=== PATIENT | female | born 1980 | race Caucasian/White ===

== ENCOUNTER 2017-12-30 05:30 | Inpatient (IN) | payer MEDICAID ==
[~2017-12-30 05:30] MED LIST: Acetaminophen 500 MG Tab PO ONE; Celecoxib 200 MG Cap PO ONE; Dextrose 5%-Lactated Ringers 1,000 ML IV SCH; Gabapentin 300 MG Cap PO ONE; Scopolamine 1.5 MG Transdermal Patch TOP ONE; cefOXitin 2 GM in Sodium Chloride 0.9% 50 ML IV ONE
[2017-12-30] MEDS ORDERED: Dexamethasone 4 MG/ML SDV ONE (06:36)
[2017-12-30] MEDS ORDERED: Rocuronium 50 MG/5 ML Vial ONE (06:36)
[2017-12-30] MEDS ORDERED: Neostigmine Methylsulfate 1 MG/ML 5 ML Syringe ONE (06:36)
[2017-12-30] MEDS ORDERED: Propofol 200 MG/20 ML SDV ONE (06:36)
[2017-12-30] MEDS ORDERED: Succinylcholine 200 MG/10 ML MDV ONE (06:36)
[2017-12-30] MEDS ORDERED: Glycopyrrolate 0.2 MG/ML 5 ML MDV ONE (06:36)
[2017-12-30] MEDS ORDERED: Ondansetron 4 MG/2 ML SDV ONE (06:36)
[2017-12-30] MEDS ORDERED: fentaNYL 250 MCG/5 ML SDV ONE ×2 (06:37→06:38)
[2017-12-30] MEDS ORDERED: cefOXitin 2 GM Vial ONE (06:57)
[2017-12-30] MEDS ORDERED: Ketamine 500 MG/5 ML MDV IV SCH (07:45)
[2017-12-30] MEDS ORDERED: Lidocaine 2% 100 MG/5 ML Syringe IVPUSH ONE (07:45)
[2017-12-30] MEDS ORDERED: Ropivacaine 60 ML, Dexamethasone 8 MG, EPINEPHrine 0.4 MG, Sodium Chloride 0.9% 17.6 ML NERVRT SCH ×4 (07:45)
[2017-12-30] MEDS ORDERED: Lidocaine 0.4%/D5W 2 GM/500 ML BAG IV SCH ×2 (07:45→11:15)
[2017-12-30] MEDS ORDERED: Labetalol 20 MG/4 ML Syringe ONE (08:00)
[2017-12-30] MEDS ORDERED: hydrOXYzine HCl 100 MG/2 ML SDV IM ONE (10:13)
[2017-12-30] MEDS ORDERED: fentaNYL 100 MCG/2 ML SDV IVPUSH ONE (10:20)
[2017-12-30] MEDS: Dextrose 5%-Lactated Ringers 1,000 ML IV SCH ×2 (11:29→22:31)
[2017-12-30] MEDS ORDERED: diphenhydrAMINE 50 MG/ML SDV IVPUSH PRN (12:00)
[2017-12-30] MEDS ORDERED: Labetalol 20 MG/4 ML Syringe IVPUSH PRN (12:00)
[2017-12-30] MEDS ORDERED: Metoclopramide 10 MG/2 ML SDV IVPUSH PRN (12:00)
[2017-12-30] MEDS: Pantoprazole 40 MG Vial IVPUSH SCH (13:46)
[2017-12-30] MEDS: Gabapentin 250 MG/5 ML Solution ML 470 ML Bottle PO SCH ×2 (13:46→20:44)
[2017-12-30] MEDS: Acetaminophen Soln 650 MG/20.3 ML UD Cup PO SCH ×2 (13:46→20:45)
[2017-12-30] MEDS: Ondansetron 4 MG/2 ML SDV IVPUSH PRN ×2 (13:57→21:06)
[2017-12-30] MEDS: cefOXitin 2 GM in Sodium Chloride 0.9% 50 ML IV SCH ×2 (13:59→20:44)
[2017-12-30] MEDS: Heparin Sodium 5,000 Units/ML Vial SUBCUT SCH (15:19)
[2017-12-30] MEDS ORDERED: MVI, Adult with Vitamin K 10 ML, Thiamine 200 MG, Chromium/Copper/Mang/Selen/Zn 1 ML in... IV SCH ×4 (16:00)
[2017-12-30] MEDS: hydrOXYzine HCl 100 MG/2 ML SDV IM PRN (21:06)
[2017-12-31] MEDS ORDERED: Iohexol 647 MG/ML 50 ML SDV PO STA (01:46)
[2017-12-31] MEDS: Acetaminophen Soln 650 MG/20.3 ML UD Cup PO SCH ×5 (03:17→20:45)
[2017-12-31] MEDS: Heparin Sodium 5,000 Units/ML Vial SUBCUT SCH ×2 (03:18→17:24)
[2017-12-31] MEDS: cefOXitin 2 GM in Sodium Chloride 0.9% 50 ML IV SCH (03:20)
[2017-12-31] MEDS: Ondansetron 4 MG/2 ML SDV IVPUSH PRN ×3 (03:24→15:56)
[2017-12-31] MEDS: Dextrose 5%-Lactated Ringers 1,000 ML IV SCH ×3 (04:52→22:01)
[2017-12-31] MEDS ORDERED: Ondansetron 4 MG Tab.DIS PO PRN (07:13)
[2017-12-31] MEDS: Metoclopramide 10 MG/2 ML SDV IVPUSH SCH ×3 (07:50→21:58)
[2017-12-31] MEDS: Levothyroxine 50 MCG Tab PO SCH (07:50)
[2017-12-31] MEDS ORDERED: Celecoxib 200 MG Cap PO SCH (08:00)
--- NOTE | 2017-12-31 08:44 | CR ---
UGI wo KUB HISTORY: eval R -Y GBP FINDINGS: After administration of oral contrast, upright views were obtained. Post operative changes gastric bypass. Surgical drains in place. No evidence for leak. Contrast passes freely into proximal small bowel loops which are mildly dilated. IMPRESSION: Postop ileus No evidence for leak or obstruction.
--- NOTE | 2017-12-31 08:50 | PN ---
DATE OF SERVICE: 12/31/2017 SUBJECTIVE: Marge is postoperative day 1. She states her pain is controlled. She has had nausea and vomiting. After taking her medication, upper GI was normal. Temp max 100.7. REVIEW OF SYSTEMS: Remainder of review of systems negative for any pertinent positives and negatives. OBJECTIVE: GENERAL: Marge Patterson is a pleasant 37-year-old female. She is alert and orientated, resting in bed. VITAL SIGNS: TPR 97.6, 76, 18, blood pressure 159/82. HEENT: Negative. NECK: Supple. HEART: Regular rate and rhythm. LUNGS: Clear. ABDOMEN: Dressings dry and intact. Abdominal binder is on. YIN drain is intact and has put out 115 mL of a light red drainage. Oral intake was 150. Urine output was 3750. EXTREMITIES: Without peripheral edema. ASSESSMENT: Laparoscopic Hayden-en-Y gastric bypass surgery, liver biopsy for morbid obesity and hepatomegaly. PLAN: 1. Reglan 10 mg IV q.6 hours scheduled. 2. Decrease IV to 100 mL per hour. 3. Dressing off, may shower. 4. Step 2 gastric bypass diet without cereal. 5. Zofran ODT 4 mg p.o. q.4 hours p.r.n. nausea. 6. Communication orders, 3 med cups every 20 minutes or equal to 3 per hour, record at bedside. 7. We will evaluate p.r.n. or in a.m. Patsy Fernandez PA-C /[id number]
[2017-12-31] MEDS: Gabapentin 250 MG/5 ML Solution ML 470 ML Bottle PO SCH ×2 (09:35→15:09)
[2017-12-31] MEDS: SCOPOLAMINE PATCH CHECK TOP SCH (09:36)
[2017-12-31] MEDS: FLUoxetine 20 MG Cap PO SCH (09:36)
[2017-12-31] MEDS: hydrOXYzine HCl 100 MG/2 ML SDV IM PRN (11:09)
[2017-12-31] MEDS ORDERED: HYDROmorphone/Normal Saline 15 MG/30 ML PCA IV PRN (15:09)
[2017-12-31] MEDS ORDERED: Naloxone 0.4 MG/ML SDV IV PRN (15:09)
[2017-12-31] MEDS ORDERED: Metoclopramide 10 MG/2 ML SDV IVPUSH PRN (15:12)
[2017-12-31] MEDS ORDERED: MVI, Adult with Vitamin K 10 ML, Thiamine 200 MG, Chromium/Copper/Mang/Selen/Zn 1 ML in... IV SCH ×4 (16:00)
[2017-12-31] MEDS: Pantoprazole 40 MG Vial IVPUSH SCH (16:02)
[2018-01-01] MEDS: Acetaminophen Soln 650 MG/20.3 ML UD Cup PO SCH ×4 (01:55→21:12)
[2018-01-01] MEDS: Heparin Sodium 5,000 Units/ML Vial SUBCUT SCH ×2 (03:28→16:10)
[2018-01-01] MEDS: Metoclopramide 10 MG/2 ML SDV IVPUSH SCH ×3 (03:28→17:38)
[2018-01-01] MEDS: Dextrose 5%-Lactated Ringers 1,000 ML IV SCH (07:52)
[2018-01-01] MEDS: SCOPOLAMINE PATCH CHECK TOP SCH (08:01)
[2018-01-01] MEDS: Levothyroxine 50 MCG Tab PO SCH (08:03)
[2018-01-01] MEDS ORDERED: Cyanocobalamin (Vitamin B12) 1,000 MCG/ML SDV IM ONE (09:00)
[2018-01-01] MEDS: FLUoxetine 20 MG Cap PO SCH (10:10)
--- NOTE | 2018-01-01 11:29 | PN ---
DATE OF SERVICE: 01/01/2018 The patient yesterday had quite a bit in the way of nausea and some emesis, felt diffuse reddening of her face. Appeared to have some reaction to some medication, perhaps the lidocaine, but that is not a certainty by any means. She looks much better today. Yesterday morning, the upper GI x-ray was showing a flow through the small bowel, all that contrast today is in the colon, and there was no significant small bowel at this time seen on the x-rays. So, I think we will restart the step-2 diet today and otherwise maximize activity and work with pulmonary toilet. We will leave her on the scheduled Reglan to help with the nausea issue. Graham Myers MD /[id number]
[2018-01-01] MEDS: Pantoprazole 40 MG Vial IVPUSH SCH (13:32)
[2018-01-02] MEDS: Heparin Sodium 5,000 Units/ML Vial SUBCUT SCH (03:36)
[2018-01-02] MEDS: Acetaminophen Soln 650 MG/20.3 ML UD Cup PO SCH ×2 (03:36→07:22)
[2018-01-02] MEDS: Levothyroxine 50 MCG Tab PO SCH (07:22)
--- NOTE | 2018-01-03 08:39 | DISCH ---
FINAL DIAGNOSIS: Morbid obesity. SECONDARY DIAGNOSES: 1. Hepatomegaly. 2. History of gastroesophageal reflux disease. 3. Mixed hyperlipidemia. 4. Anxiety and depression. OPERATIVE PROCEDURES: Done on 12/30/2017, laparoscopic Hayden-en-Y gastric bypass with long limb gastroenterostomy with liver biopsy. HOSPITAL COURSE: This is a 37-year-old presenting with longstanding morbid obesity and increasingly significant comorbidities. After preoperative evaluation and discussion, she wished to proceed with a gastric bypass procedure. This was done on 12/30/2017. The patient, on postoperative day #1, was noted to have a slow GI tract and appeared to have some reaction to some medication in terms of flushing and oversedation. All of her medications, other than Tylenol were held, and this did then clear. Presently, she is doing well on a step-2 diet and taking only Tylenol for pain. The plan will be to discharge home today. She will be following up with Patsy Fernandez in [facility] on 01/10/2018. She was instructed to stay on a step-2 diet until that time, and she will be taking her usual Synthroid and fluoxetine, omeprazole I think we can discontinue at this point, and she has been requiring only Tylenol for pain.
--- NOTE | 2018-01-03 08:39 | OR ---
DATE OF PROCEDURE: 12/30/2017 PREOPERATIVE DIAGNOSIS: Morbid obesity. POSTOPERATIVE DIAGNOSES: 1. Morbid obesity. 2. Marked hepatomegaly. OPERATIVE PROCEDURE: 1. Laparoscopic Hayden-en-Y gastric bypass with long limb gastroenterostomy (86081). 2. Chi-Cut needle liver biopsy (38831). ANESTHESIA: General. SENIOR RESEARCH PROJECT MANAGER: Patsy Fernandez PA-C. INDICATION FOR PROCEDURE: This is a 37-year-old presenting with longstanding morbid obesity, increasingly significant comorbidities. After preoperative evaluation and discussion, she wished to proceed with a gastric bypass procedure. Potential risks including bleeding, infection, leaks from various GI tract closures, problems with bowel obstruction over time as well as possibility of cardiopulmonary, septic, or hemorrhagic complications leading to were discussed, and the patient wishes to proceed. DETAILS OF PROCEDURE: The patient was taken to the operating room and placed in a supine position. After general endotracheal anesthesia was induced, the abdomen was prepped and draped. An orogastric tube placed. At 15 cm inferior and 5 cm left of xiphoid process, transverse incision was made and the peritoneal cavity entered under direct vision with an Optiview trocar and inflated to 15 mmHg pressure with CO2. Laparoscope was reinserted. No underlying trocar insertion site injuries were seen. Following this, bilateral subcostal transversus abdominis plane blocks were placed with direct visualization of the needle in the correct location and injection of fluid bilaterally. At this point, the omentum was divided in the midline up in the level of the transverse colon. There was some adherent omentum to the pelvis from previous gynecological procedures, but this clearly needed to be divided. After division of the omentum, the transverse colon was adequately mobile. The ligament of Treitz was identified. The small bowel was then traced out 150 cm distal to that point, was divided with the NATHALIE stapler. The small bowel was then traced out additional 200 cm where the [id number] enteroenterostomy was accomplished with internal firing of the Endo-NATHALIE 60 mm stapler. The common iliac was closed transversely with same stapler, the angle was anastomosed and mesenteric defect approximated proximally with 0-Ethibond sutures. The Hayden limb was then brought up to the level of the esophagogastric junction by an antecolic antegastric approach without tension. The gastrointestinal balloon catheter was then inflated after retraction of the liver anteriorly. The apex of the balloon underlying stomach was then marked and the balloon deflated and withdrawn. The lesser omental tissue adjacent to the gastric cardia was then incised allowing dissection behind the stomach at that level. Pouch formation was initiated with a GI stapler at the level of the cauterized rk and then continued up to and through the angle of His with additional NATHALIE staple firings. Upon completion of the pouch, both staple lines were noted to be intact. The anvil of a 25 mm EEA stapler was then attached to a [place] sump type tube. The latter was brought down through the mouth and taken out through a small opening in the gastric pouch allowing the anvil likewise to be pulled down to within the gastric pouch, divided end of the Hayden limb was then opened and main body of the EEA stapler passed several centimeters in the lumen of the small bowel, brought up the anvil, united with it, thus creating the gastrojejunostomy. Upon removal of the stapler, double donuts of mucosa were noted within it. Small bowel was closed off with a vascular staple line. Gastrojejunostomy was reinforced with some 3-0 Vicryl seromuscular stitch along with fibrin sealant. Leak test was accomplished with injection of 120 mL of air in the gastric pouch while submerged with a cefoxitin-containing saline solution. No leaks were identified. Two Sai-Thapa drains were then placed adjacent to gastrojejunostomy and subcostal trocar sites. No further problems were noted. Trocars were removed. The peritoneal cavity was deflated. The incisions were closed with some 4-0 Vicryl skin stitch and the drains were affixed with 4-0 Vicryl stitch as well and dressing applied. The patient was taken to the recovery room in satisfactory condition. Physician funeral director's assistant, Patsy Fernandez, played an essential role in assisting in this case, helping to position the patient, retract structures as needed as well as suturing and cutting sutures when indicated. Her presence improved patient safety and decreased the operative time. Graham Myers MD /[id number]
--- NOTE | 2018-01-03 08:44 | CR ---
Abdomen 2V AP Flat Upright CLINICAL HISTORY: Status post Hayden-en-Y gastric bypass FINDINGS: Surgical drains remain in place. There is contrast in the colon. There are scattered air-fi lled and mildly dilated loops of small bowel which is decreased since prior study IMPRESSION: Status post Ahyden-en-Y gastric bypass No evidence of obstruction
== END 2018-01-02 10:30 | disposition home or self-care (01) | DRG 621 ==
LOC: JP.MS 05:30 → JP.SDS 05:30 → EDSTATUS 08:30 → JP.2SS 11:37
PROVIDERS: ADMIT Surgery; ATTEND Surgery
PROC: 0D164ZA Bypass Stomach to Jejunum, Percutaneous Endoscopic Approach (ICD-10-PCS; principal; 2017-12-30)
PROC: 3E0T3BZ Introduction of Anesthetic Agent into Peripheral Nerves and Plexi, Percutaneous Approach (ICD-10-PCS; 2017-12-30)
PROC: 0FB24ZX Excision of Left Lobe Liver, Percutaneous Endoscopic Approach, Diagnostic (ICD-10-PCS; 2017-12-30)
DX: E66.01 Morbid (severe) obesity due to excess calories (principal); Z68.43 Body mass index [BMI] 50.0-59.9, adult; R16.0 Hepatomegaly, not elsewhere classified; E03.9 Hypothyroidism, unspecified; K21.9 Gastro-esophageal reflux disease without esophagitis; E78.2 Mixed hyperlipidemia; F41.9 Anxiety disorder, unspecified; F32.9 Major depressive disorder, single episode, unspecified; F17.210 Nicotine dependence, cigarettes, uncomplicated; G43.909 Migraine, unspecified, not intractable, without status migrainosus; Z91.030 Bee allergy status; Z91.09 Other allergy status, other than to drugs and biological substances; R11.2 Nausea with vomiting, unspecified; T50.905A Adverse effect of unspecified drugs, medicaments and biological substances, initial encounter; Y92.230 Patient room in hospital as the place of occurrence of the external cause
CPT/HCPCS: 36415; 74019; 74019-26; 74240; 74240-26; 80053; 81001; 83735; 84100; 85027; 86850; 86900; 86901; 88307; 88313; 94762; A9270-GY; C9113; J0171; J0330; J0694; J1100; J1170; J1644; J2001; J2405; J2704; J2710; J2765; J2795; J3010; J3410; J3411; J3420; J3490; J7030; J7042; J7050; Q9967

== ENCOUNTER 2020-02-20 08:12 | Inpatient (IN) | payer MEDICAID ==
[~2020-02-20 08:12] MED LIST changes: -Acetaminophen 500 MG Tab PO ONE; +Bupivacaine 0.5%/EPINEPHrine 1:200,000 50 ML MDV ONE; -Celecoxib 200 MG Cap PO ONE; -Dextrose 5%-Lactated Ringers 1,000 ML IV SCH; -Gabapentin 300 MG Cap PO ONE; +Meropenem 500 MG SDV ONE; -Scopolamine 1.5 MG Transdermal Patch TOP ONE; -cefOXitin 2 GM in Sodium Chloride 0.9% 50 ML IV ONE
[2020-02-20] MEDS ORDERED: Iopamidol 612 MG/ML 100 ML Bottle IV PRN (08:43)
[2020-02-20] MEDS ORDERED: Sodium Chloride 0.9% 10 ML Syringe FLUSH PRN (08:43)
[2020-02-20] MEDS ORDERED: Acetaminophen 500 MG Tab PO ONE (08:45)
[2020-02-20] MEDS ORDERED: Celecoxib 200 MG Cap PO ONE (08:45)
[2020-02-20] MEDS ORDERED: Scopolamine 1.5 MG Transdermal Patch TOP SCH (08:45)
[2020-02-20] MEDS ORDERED: Dextrose 5%-Lactated Ringers 1,000 ML IV SCH ×2 (08:45→14:30)
[2020-02-20] MEDS ORDERED: Glycopyrrolate 0.2 MG/ML 5 ML MDV ONE (08:55)
[2020-02-20] MEDS ORDERED: fentaNYL 250 MCG/5 ML SDV ONE ×2 (08:55→12:09)
[2020-02-20] MEDS ORDERED: Propofol 200 MG/20 ML SDV ONE (08:55)
[2020-02-20] MEDS ORDERED: Rocuronium 50 MG/5 ML Vial ONE (08:55)
[2020-02-20] MEDS ORDERED: Ondansetron 4 MG/2 ML SDV ONE (08:55)
[2020-02-20] MEDS ORDERED: Neostigmine Methylsulfate 1 MG/ML 5 ML Syringe ONE (08:55)
[2020-02-20] MEDS ORDERED: Dexamethasone 4 MG/ML SDV ONE (08:55)
[2020-02-20] MEDS ORDERED: Succinylcholine 200 MG/10 ML MDV ONE (08:55)
[2020-02-20] MEDS ORDERED: Naloxone 0.4 MG/ML SDV IVPUSH PRN (09:00)
[2020-02-20] MEDS ORDERED: Bupivacaine 0.5% 50 ML MDV ONE (09:36)
[2020-02-20] MEDS ORDERED: Lidocaine 1% with EPINEPHrine 1:100,000 50 ML MDV ONE (09:36)
[2020-02-20] MEDS ORDERED: Ketamine 50 MG in Sodium Chloride 0.9% 49.5 ML IV SCH (10:00)
[2020-02-20] MEDS ORDERED: Ketamine 500 MG/5 ML MDV IV SCH (10:00)
[2020-02-20] MEDS ORDERED: ceFAZolin 2 GM in Premix Bag 1 BAG IV ONE (10:00)
--- NOTE | 2020-02-20 10:00 | CT ---
Soft Tissue Neck w Cont CLINICAL HISTORY: Lymphadenopathy, abnormal thyroid TECHNIQUE: Transverse scans were obtained from the nasopharynx to the thoracic inlet before and following iodinated IV contrast. Auto dosage reduction and iterative reconstruction techniques employed. COMPARISON: Thyroid ultrasound 02/12/2020 FINDINGS: The nasopharynx is free of mass. No parapharyngeal masses are seen. The vallecula is clear. The pyriform sinuses are free of mass effect. The vocal cords are symmetric bilaterally. The subglottic airway has a normal course and contour. The thyroid gland is large and heterogeneous. There is a nodule in the mid isthmus measuring 1.0 x 1.3 x 1.5 cm. It is somewhat hypoechoic. This is less well appreciated on the ultrasound. The salivary glands have a normal contour. There are a few small lymph nodes in the low neck and supraclavicular region. The largest has a transverse dimension of just less than 8 mm. These are not particularly suspicious. There are a few small isolated lymph nodes in the upper neck. IMPRESSION: Enlarged lobulated and heterogeneous thyroid as described on recent ultrasound. 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 1.0 x 1.3 x 1.5 cm prominent nodular focus in the thyroid isthmus. Due to the asymmetry a FNA biopsy should be considered No suspicious lymphadenopathy
[2020-02-20] MEDS: HYDROmorphone/Normal Saline 15 MG/30 ML PCA IV PRN (10:23)
[2020-02-20] MEDS ORDERED: Lactated Ringers 1,000 ML ONE (12:23)
[2020-02-20] MEDS ORDERED: hydrOXYzine HCL 100 MG/2 ML SDV IM ONE (13:16)
[2020-02-20] MEDS ORDERED: Cyclobenzaprine 10 MG Tab PO PRN (14:33)
[2020-02-20] MEDS ORDERED: Acetaminophen 500 MG Tab PO PRN (15:00)
[2020-02-20] MEDS ORDERED: Metoclopramide 10 MG/2 ML SDV IVPUSH PRN (15:00)
[2020-02-20] MEDS ORDERED: diphenhydrAMINE 50 MG/ML SDV IVPUSH PRN (15:00)
[2020-02-20] MEDS ORDERED: Labetalol 20 MG/4 ML Syringe IVPUSH PRN (15:00)
[2020-02-20] MEDS ORDERED: hydrOXYzine HCL 100 MG/2 ML SDV IM PRN (15:00)
[2020-02-20] MEDS: MVI, Adult with Vitamin K 10 ML, Thiamine 200 MG, Chromium/Copper/Mang/Selen/Zn 1 ML in... IV SCH ×4 (16:28)
[2020-02-20] MEDS: Pantoprazole 40 MG Vial IVPUSH SCH (16:28)
[2020-02-20] MEDS: Ondansetron 4 MG/2 ML SDV IVPUSH PRN (17:31)
[2020-02-20] MEDS: ceFAZolin 2 GM in Premix Bag 1 BAG IV SCH (17:31)
[2020-02-20] MEDS: Acetaminophen 500 MG Tab PO SCH ×2 (17:31→21:40)
[2020-02-21] MEDS: ceFAZolin 2 GM in Premix Bag 1 BAG IV SCH ×2 (02:41→10:14)
[2020-02-21] MEDS: Acetaminophen 500 MG Tab PO SCH ×3 (06:01→21:05)
[2020-02-21] MEDS: Levothyroxine 100 MCG, Levothyroxine 25 MCG PO SCH ×2 (07:33)
[2020-02-21] MEDS ORDERED: Ondansetron 4 MG Tab.DIS PO PRN (08:20)
[2020-02-21] MEDS: SCOPOLAMINE PATCH CHECK TOP SCH (08:50)
[2020-02-21] MEDS: Sertraline 50 MG Tab PO SCH (08:51)
[2020-02-21] MEDS: Celecoxib 200 MG Cap PO SCH ×2 (08:51→21:04)
--- NOTE | 2020-02-21 09:29 | US ---
Head Neck Soft Tissue Lt CLINICAL HISTORY: Enlarged nodular thyroid FINDINGS: Scans are obtained to through the thyroid to evaluate the isthmus and perithyroidal tissue in planning for biopsy. Study is correlated to the current CT neck. The nodular focus near the thyroid isthmus described is actually slightly above the thyroid isthmus and contiguous with the upper portion of the left lobe of the thyroid. This is likely ectopic thyroid tissue or an enlarged pyramidal lobe. Just below this and contiguous to the anterior isthmus is a 7 x 4 mm nodule which is slightly less echogenic. It is felt to correlate to a slightly less dense nodular focus contiguous with the isthmus on CT. This likely represents a lymph node. IMPRESSION: There is pretracheal ectopic thyroid tissue just above the isthmus. This appears to extend from the upper portion of the left lobe of the thyroid with some shared vascularity. This is felt to represent some ectopic thyroidal tissue or an enlarged pyramidal lobe Interposed between the ectopic thyroid tissue and the upper portion the isthmus is a 7 x 4 mm lymph node.
[2020-02-21] MEDS: Bisacodyl 5 MG Tab PO SCH ×2 (10:15→21:05)
[2020-02-21] MEDS: Docusate Sodium 100 MG Cap PO SCH ×2 (10:15→21:05)
[2020-02-21] MEDS: Dextrose 5%-Lactated Ringers 1,000 ML IV SCH (11:31)
--- NOTE | 2020-02-21 13:23 | PN ---
DATE OF SERVICE: 02/21/2020 SUBJECTIVE: Marge is postoperative day #1. Pain has been controlled with WORT EXTRACTOR. She has been up and ambulating. She has no questions or concerns. She will be having an ultrasound of her thyroid this morning. OBJECTIVE: GENERAL: Marge is a 39-year-old female. She is alert and oriented, resting comfortably in bed. VITAL SIGNS: TPR at 0728; 97.7, 45, 16, blood pressure 111/74. HEENT: Negative. NECK: Supple. HEART: Regular rate and rhythm. LUNGS: Clear. ABDOMEN: Dressings dry and intact. Abdominal binder is on. EXTREMITIES: Without peripheral edema. ASSESSMENT: Exploratory laparotomy with: 1. Repair of incarcerated incisional hernia with mesh. 2. Reduction of small bowel volvulus. 3. Excision of peritoneal nodule. 4. Partial omentectomy. 5. Placement of Interceed mesh x2. POSTOPERATIVE DIAGNOSES: Incarcerated incisional hernia, focal small bowel volvulus related to adhesions, intraperitoneal nodule underlying mid hernia sac, 5.6 cm, elongated leathery intraperitoneal lesion underlying right mid abdomen 10 cm and area of devascularized omentum after takedown of adhesions, 15 cm. Date of procedure 02/20/2020. Surgeon: Graham Myers MD. PLAN: 1. Call Dr. Myers when ultrasound is complete. 2. Discontinue Thurman catheter. 3. Decrease IV to 100 mL/hour. 4. Step 2 gastric bypass diet. 5. Colace 100 mg b.i.d. 6. Dulcolax 10 mg b.i.d. p.o. 7. Continue use of incentive spirometer. 8. We will evaluate p.r.n. or in a.m. Patsy Fernandez PA-C /[id number]
[2020-02-21] MEDS: Pantoprazole 40 MG Vial IVPUSH SCH (17:33)
[2020-02-21] MEDS: MVI, Adult with Vitamin K 10 ML, Thiamine 200 MG, Chromium/Copper/Mang/Selen/Zn 1 ML in... IV SCH ×4 (17:34)
[2020-02-21] MEDS: Ondansetron 4 MG/2 ML SDV IVPUSH PRN (22:57)
[2020-02-22] MEDS: HYDROmorphone/Normal Saline 15 MG/30 ML PCA IV PRN (03:25)
[2020-02-22] MEDS: Acetaminophen 500 MG Tab PO SCH ×3 (06:00→21:22)
[2020-02-22] MEDS: Dextrose 5%-Lactated Ringers 1,000 ML IV SCH (06:01)
[2020-02-22] MEDS: Levothyroxine 100 MCG, Levothyroxine 25 MCG PO SCH ×2 (07:51)
--- NOTE | 2020-02-22 08:58 | PN ---
DATE OF SERVICE: 02/22/2020 SUBJECTIVE: Marge will be going down for a fine-needle aspiration today of her thyroid nodule. She has no questions or concerns. Remains to have quite a bit postoperative pain. Afebrile. Been up, ambulating. Oral intake 2730 and urine output is 1400. REVIEW OF SYSTEMS: Remainder of review of systems negative for any pertinent positives and negatives. OBJECTIVE: GENERAL: Marge Patterson is a pleasant 39-year-old female. She is alert and orientated, color pale. VITAL SIGNS: TPR at 03:17 is 96.7; 57; 14; blood pressure 135/81. HEENT: Negative. NECK: Supple. HEART: Regular rate and rhythm. LUNGS: Clear. ABDOMEN: Aquacel dressings on. Abdominal binder is on. EXTREMITIES: Without peripheral edema. ASSESSMENT: 1. Thyroid nodule. 2. Exploratory laparotomy with: a. Repair of incarcerated incisional hernia with mesh. b. Reduction of small bowel volvulus. c. Excision of peritoneal nodule. d. Partial omentectomy. e. Placement of Interceed mesh x2. PLAN: Remain n.p.o. for fine-needle aspiration today. Orders to be written post procedure. Patsy Fernandez PA-C /[id number]
[2020-02-22] MEDS ORDERED: Cyanocobalamin (Vitamin B12) 1,000 MCG/ML SDV IM ONE (09:00)
[2020-02-22] MEDS ORDERED: Naloxone 0.4 MG/ML SDV IVPUSH PRN (09:06)
[2020-02-22] MEDS ORDERED: Lidocaine 1% with EPINEPHrine 1:100,000 50 ML MDV SUBCUT PRN (09:07)
[2020-02-22] MEDS ORDERED: Midazolam 1 MG/ML 2 ML SDV IVPUSH PRN (09:16)
[2020-02-22] MEDS ORDERED: Midazolam 1 MG/ML 5 ML SDV IVPUSH PRN (09:44)
[2020-02-22] MEDS ORDERED: Flumazenil 0.1 MG/ML 5 ML MDV IVPUSH PRN (10:00)
[2020-02-22] MEDS ORDERED: fentaNYL 100 MCG/2 ML SDV IVPUSH PRN (10:00)
[2020-02-22] MEDS: Celecoxib 200 MG Cap PO SCH ×2 (13:34→21:22)
[2020-02-22] MEDS: Docusate Sodium 100 MG Cap PO SCH ×2 (13:34→21:22)
[2020-02-22] MEDS: Bisacodyl 5 MG Tab PO SCH ×2 (13:34→21:22)
[2020-02-22] MEDS: SCOPOLAMINE PATCH CHECK TOP SCH (13:34)
[2020-02-22] MEDS: Sertraline 50 MG Tab PO SCH (13:52)
[2020-02-22] MEDS: MVI, Adult with Vitamin K 10 ML, Thiamine 200 MG, Chromium/Copper/Mang/Selen/Zn 1 ML in... IV SCH ×4 (16:02)
[2020-02-22] MEDS: Pantoprazole 40 MG Delayed-Release Granules 1 Packet PO SCH (16:04)
[2020-02-23] MEDS: Dextrose 5%-Lactated Ringers 1,000 ML IV SCH ×2 (02:29→11:32)
[2020-02-23] MEDS: Acetaminophen 500 MG Tab PO SCH ×3 (05:47→21:02)
[2020-02-23] MEDS: Celecoxib 200 MG Cap PO SCH ×2 (08:12→21:02)
[2020-02-23] MEDS: Levothyroxine 100 MCG, Levothyroxine 25 MCG PO SCH ×2 (08:12)
[2020-02-23] MEDS: Bisacodyl 5 MG Tab PO SCH ×2 (08:13→21:02)
[2020-02-23] MEDS: Sertraline 50 MG Tab PO SCH (08:13)
[2020-02-23] MEDS: Docusate Sodium 100 MG Cap PO SCH ×2 (08:13→21:02)
[2020-02-23] MEDS: oxyCODONE 5 MG Tab PO PRN ×4 (09:02→22:12)
[2020-02-23] MEDS: Magnesium Sulfate/Water 2 GM in Premix Bag 1 BAG IV SCH ×3 (10:40→21:02)
[2020-02-23] MEDS: Pantoprazole 40 MG Delayed-Release Granules 1 Packet PO SCH (16:21)
[2020-02-23] MEDS: MVI, Adult with Vitamin K 10 ML, Thiamine 200 MG, Chromium/Copper/Mang/Selen/Zn 1 ML in... IV SCH ×4 (16:21)
--- NOTE | 2020-02-23 16:24 | PN ---
DATE OF SERVICE: 02/23/2020 The patient is status post an open repair of a large incisional hernia with mesh along with release of a partial small bowel obstruction adhesions on 02/20/2020. She has still not moved her bowels bowel stimulation. We will switch over to oral pain medication today consistent with oxycodone. Magnesium is somewhat low. She will be ready to be discharged home once the bowels get moving and she is controlled adequately on the oral pain medication. Graham Myers MD /[id number]
[2020-02-24] MEDS: Magnesium Sulfate/Water 2 GM in Premix Bag 1 BAG IV SCH ×4 (02:43→21:01)
[2020-02-24] MEDS: oxyCODONE 5 MG Tab PO PRN ×5 (02:43→19:57)
[2020-02-24] MEDS: Acetaminophen 500 MG Tab PO SCH ×3 (06:04→21:02)
[2020-02-24] MEDS: Levothyroxine 100 MCG, Levothyroxine 25 MCG PO SCH ×2 (07:24)
[2020-02-24] MEDS: Sertraline 50 MG Tab PO SCH (08:45)
[2020-02-24] MEDS: Bisacodyl 5 MG Tab PO SCH ×2 (08:45→20:04)
[2020-02-24] MEDS: Docusate Sodium 100 MG Cap PO SCH ×2 (08:45→20:05)
[2020-02-24] MEDS: Celecoxib 200 MG Cap PO SCH ×2 (08:45→21:02)
[2020-02-24] MEDS ORDERED: Morphine 2 MG/ML SYRINGE IVPUSH PRN (13:08)
[2020-02-24] MEDS ORDERED: Scopolamine 1.5 MG Transdermal Patch TRDERM ONE (14:00)
[2020-02-24] MEDS ORDERED: Enoxaparin 40 MG/0.4 ML Syringe SUBCUT SCH (16:00)
[2020-02-24] MEDS: Pantoprazole 40 MG Delayed-Release Granules 1 Packet PO SCH (17:40)
[2020-02-24] MEDS: MVI, Adult with Vitamin K 10 ML, Thiamine 200 MG, Chromium/Copper/Mang/Selen/Zn 1 ML in... IV SCH ×4 (20:02)
[2020-02-25] MEDS: oxyCODONE 5 MG Tab PO PRN ×3 (00:41→10:38)
[2020-02-25] MEDS: Magnesium Sulfate/Water 2 GM in Premix Bag 1 BAG IV SCH (04:19)
[2020-02-25] MEDS: Acetaminophen 500 MG Tab PO SCH ×2 (05:37→14:29)
[2020-02-25] MEDS: Levothyroxine 100 MCG, Levothyroxine 25 MCG PO SCH ×2 (08:26)
[2020-02-25] MEDS: Sertraline 50 MG Tab PO SCH (09:15)
[2020-02-25] MEDS: Celecoxib 200 MG Cap PO SCH (09:15)
[2020-02-25] MEDS: Docusate Sodium 100 MG Cap PO SCH (09:15)
[2020-02-25] MEDS: Bisacodyl 5 MG Tab PO SCH (09:15)
[2020-02-25] MEDS ORDERED: Lactulose Soln 10 GM/15 ML 15 ML UD Cup PO SCH (12:00)
--- NOTE | 2020-02-25 17:12 | CONS ---
DATE OF SERVICE: 02/25/2020 REFERRING PHYSICIAN: Graham Myers MD CONSULTING PHYSICIAN: Aaron Bedolla MD REASON FOR CONSULTATION: History of hernia repair and small-bowel resection on 02/20/2020. HISTORY OF PRESENT ILLNESS: The patient is still having ongoing issues with pain control. She has no nausea, vomiting, shortness of breath, or chest pain. She is passing gas. PAST MEDICAL HISTORY: Anxiety, depression, migraines, hyperlipidemia, iron deficiency, history of , colonoscopy, gastric bypass surgery, tubal ligation. SOCIAL HISTORY: She does not actively smoke. REVIEW OF SYSTEMS: GENERAL: Appropriate for her condition. HEENT: No abnormalities. CARDIOVASCULAR: No chest pain. RESPIRATORY: No shortness of breath. GASTROINTESTINAL: As above. GENITOURINARY: No dysuria. NEUROLOGICAL: No symptoms. PSYCHIATRIC: No symptoms. The remainder of review of systems is reviewed and is negative. PHYSICAL EXAMINATION: VITAL SIGNS: Temperature 96.3, blood pressure 144/96, pulse 68, respirations 16, 99% on room air. HEENT: Pupils are equal. NECK: Supple. LUNGS: Clear. CARDIOVASCULAR: Regular rhythm and rate. Incision healing well. NEUROLOGICAL: Oriented x3. PSYCHIATRIC: No gross depression. EXTREMITIES: Full range of motion. IMAGING DATA: I did review this. No specific concerns at this time. ASSESSMENT: Post hernia repair and fine needle aspiration of thyroid. PLAN: The patient is doing well. Pain is an issue. We will modify her pain medication. Please see pain plan. Please see orders for further details. We will await the GI activity. I believe once the patient has bowel movements and pain has improved she will be eligible for discharge. Aaron Bedolla MD /[id number]
--- NOTE | 2020-02-26 10:35 | PN ---
DATE OF SERVICE: 02/25/2020 SUBJECTIVE: The patient is doing better today. Pain is improved. No nausea, vomiting, shortness of breath, or chest pain. OBJECTIVE: VITAL SIGNS: Stable. CARDIOVASCULAR: Regular rhythm and rate. RESPIRATORY: Lungs are clear to auscultation bilaterally. SKIN: Incision healing well/dressing intact. ASSESSMENT: Status post ventral hernia repair. PLAN: The patient will remain on step-3 diet. We will continue the same pain plan and await bowel movement. Aaron Bedolla MD /[id number]
--- NOTE | 2020-02-27 07:59 | OR ---
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 OPERATIVE PROCEDURES: 1. Ultrasound-guided fine-needle aspiration of an enlarged abnormal lymph node over the thyroid isthmus ([id number]). 2. Ultrasound-guided fine-needle aspiration of the left thyroid lobe (). ANESTHESIA: Local plus IV sedation. INDICATIONS FOR PROCEDURE: This is a 39-year-old female presenting with a partial small- bowel obstruction. As part of her workup, she was noted to have some obvious diffuse goiter. A combination of an ultrasound and a CT scan showed a diffuse enlarged thyroid consistent with probable Lizy disease associated with the development of hypothyroidism, which is presently being treated. Ultrasound in followup yesterday revealed a slightly abnormal-appearing and slightly enlarged lymph node over the thyroid isthmus. The plan is to proceed with fine-needle aspiration of that for diagnostic purposes, and we will also do a fine-needle aspiration of the left thyroid lobe to help confirm the diagnosis of lymphocytic thyroiditis. The potential risks of the procedure, including bleeding, infection, injury to nerves in the area, and possible problems with misdiagnosis, were all gone over, and the patient wishes to proceed. DETAILS OF THE PROCEDURE: The patient was taken to the ACU procedure room and placed in supine position with the neck somewhat extended. IV sedation was administered, after which the upper chest and neck areas were prepped and draped. The enlarged lymph node was identified with ultrasound, and adjacent to the ultrasound probe, some 1% lidocaine was injected in the skin and subcutaneous tissue. Initially, a 20-gauge needle was passed into the lymph node and passed back and forth within the lymph node under continuous ultrasound guidance. This returned with somewhat dark bloody. A 2nd aspiration using an 18-gauge needle was also then undertaken. This had quite a bit of less blood present and probably likely more diagnostic. Finally, then, an aspiration of the left thyroid lobe was obtained with a 20-gauge needle, and this was relatively non-bloody and was sent in [facility] solution as well, and the procedure was then concluded. COMPLICATIONS: There were no evident complications. Graham Myers MD /[id number]
--- NOTE | 2020-02-28 11:20 | OR ---
DATE OF PROCEDURE: 02/20/2020 SURGEON: Graham Myers MD PREOPERATIVE DIAGNOSIS: Incisional hernia. POSTOPERATIVE DIAGNOSES: 1. Incarcerated incisional hernia. 2. Small bowel volvulus related to adhesions and focal mesenteric defect. 3. Intraperitoneal nodule underlying the mid hernia sac (5.6 cm). 4. Elongated leathery intraperitoneal lesion extending from right mid abdominal wall toward the hernia sac 10.8 cm. 5. Area of devascularization of the omentum after takedown of adhesions. OPERATIVE PROCEDURES: Exploratory laparotomy with lysis of extensive adhesions: 1. Repair of incarcerated incisional hernia with mesh (12889, 81983). 2. Reduction of small bowel volvulus, closure of internal hernia (82688). 3. Excision of peritoneal nodule underlying hernia sac (83524). 4. Excision of elongated peritoneal implant, right anterior abdominal wall (71506). 5. Partial omentectomy (11666). 6. Placement of Interceed mesh x2 to limit recurrent adhesion formation between pelvic and abdominal wall and underlying viscera (35338). ANESTHESIA: General. INDICATIONS FOR PROCEDURE: This is a 39-year-old presenting with increasingly enlarging incisional hernia located in the upper midline incision. Plan is to proceed with open repair of this. The patient also complains of some crampy abdominal pain, and we will have to see if there are any problems with the adhesion formation or partial bowel obstruction that might be present. Potential risks of the procedure including bleeding, infection, injury to underlying viscera, possible problems with the mesh becoming infected or hernia recurring were all reviewed, and the patient wishes to proceed. DETAILS OF PROCEDURE: The patient was taken to the operating room and placed in a supine position. After general endotracheal anesthesia was induced, a Thurman catheter was inserted, and the abdomen prepped and draped. The previous upper midline incision was then reused and carried down through the skin and subcutaneous tissue and down onto the hernia sac. The hernia sac was then dissected from subcutaneous tissue circumferentially down to the level of the fascial edges. The hernia sac was then opened inferiorly and some incarcerated omentum and transverse colon were then dissected free from the hernia sac and replaced back into the peritoneal cavity. Hernia sac was then excised flush with the underlying fascia circumferentially. During the course of the dissection, 2 elongated somewhat leathery intraperitoneal lesions were seen. One was overlying the hernia sac and this measured 10.8 cm and was sent separately for specific identification, and there was a second quite thickened and even more leathery peritoneal implant in the anterior abdominal wall adjacent to the hernia, measuring 10.8 cm, and this was excised and also sent for histologic evaluation. The small bowel was then examined, and the patient was noted, on tracing the small bowel, to have a focal small bowel volvulus involving the common limb just beyond the jejunojejunostomy. Part of this was related to some adhesions fixing the bowel and a smaller defect underneath the jejunojejunostomy. This area was then reduced and that defect then closed with 2-0 silk stitch. No additional abnormalities in the small bowel were then identified after dissection of some additional adhesions. Examination of the omentum showed a roughly 15 cm segment of this now devascularized, and this was excised with a NATHALIE stapler and the specimen delivered from the field. The hernia was then mapped out and a Ventralex ST hernia mesh, measuring 19.6 x 24.6 cm, was selected. At roughly 5 cm intervals around its circumference, 2-0 Vicryl sutures were placed on the polypropylene side of the mesh and small stab wounds were then placed at the premarked locations, where the sutures will be pulled up, fixing the mesh well away from the fascial edges. The mesh was soaked with an antibiotic-containing saline solution and placed in intraperitoneal location. The orientation of the mesh was such that the long axis was in transverse direction as the forces of this hernia were such that a recurrence would more likely occur with the fascia spanning transversely. Once the antibiotic had been soaked, the left side of the abdominal sutures were pulled up, fixing the mesh to that extent. To limit recurrent adhesion formation, two Interceed meshes were placed underneath the mesh and from there down toward the pelvis to limit recurrent adhesion formation between the mesh and the remaining of the pelvic abdominal wall surfaces. The remaining sutures were then pulled up and then tied. The underlying shelf of the mesh was then affixed to the abdominal wall as well circumferentially with titanium tacking screws. At that point, no further problems were noted. The abdomen had been irrigated with meropenem and Zyvox containing saline solution. The mesh was once again irrigated with that as well. The fascial closure was then accomplished with a #2 Vicryl stitch, subcutaneous tissue with 2 layers of 3-0 and 4-0 Vicryl stitch deep and amarjit for the skin. Prior to closure, bilateral transverse abdominis plane blocks had been placed and the wound edges anesthetized with 1% lidocaine mixed with Marcaine. The patient was taken to the recovery room in satisfactory condition. There were no evident complications. Graham Myers MD /[id number]
--- NOTE | 2020-02-29 10:14 | DISCH ---
FINAL DIAGNOSES: 1. Incarcerated incisional hernia. 2. Focal small bowel volvulus. 3. Intraperitoneal nodule underlying mid area of hernia sac. 4. Elongated leathery intraperitoneal nodule underlying right mid abdominal wall. 5. Area of devascularization of omentum, status post takedown of adhesions. 6. Bariatric surgery status (Hayden-en-Y gastric bypass, 12/2017). 7. Vitamin A deficiency. 8. History of hyperlipidemia. 9. History of depression. 10.History of copper and zinc deficiencies. 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 OPERATIVE PROCEDURE: 1. This was done on 02/20/2020, exploratory laparotomy with: a. Repair of incarcerated incisional hernia with mesh. b. Reduction of small bowel volvulus, closure of internal hernia. c. Excision of peritoneal nodules as noted above. d. Partial omentectomy. e. Placement of Interceed mesh x2 to limit recurrent adhesion formation. 2. On 02/22/2020, the patient underwent ultrasound-guided fine-needle aspiration of: a. Enlarged lymph node over thyroid isthmus. b. Parenchymal area of left thyroid lobe. SUMMARY: This is a 39-year-old female presenting with increasing pain associated with an enlarging hernia in the upper abdomen. On the date of admission, the patient underwent exploratory laparotomy with repair of the hernia with mesh. She also had a focal small bowel volvulus, which likely accounted for quite a bit of the patient's preoperative pain. It would seem to be more than what we would expect from simple hernia being present. She also had some intraperitoneal implants, as noted above, and underwent a partial omentectomy and Interceed mesh placement postoperatively. An additional ultrasound was obtained to clarify the previous findings on 02/21/2020, and the radiologist, after discussion, recommended a fine-needle aspiration of the lymph node overlying the isthmus and, to help to confirm that the patient has Lizy's disease, a final aspiration of the thyroid parenchyma as well. This was done on 02/22/2020, and pathology on all of this is still pending. Postoperatively, the patient had a slightly slow course with regard to return of bowel function and pain control. She was eventually eating well and moving her bowels. The patient actually will be discharged home on her usual medications plus Flexeril 10 mg q.8 hours p.r.n., #13, and oxycodone 5 mg q.4 hours p.r.n., #30. Followup will be with Patsy Fernandez at [facility] on 03/04/2020.
== END 2020-02-25 16:05 | disposition home or self-care (01) | DRG 329 ==
LOC: JP.SDS 08:12 → JP.SDSSCHI 08:12 → JP.MS 12:00 → EDSTATUS 12:30
PROVIDERS: ADMIT Surgery; ATTEND Surgery
PROC: 0DS80ZZ Reposition Small Intestine, Open Approach (ICD-10-PCS; principal; 2020-02-20)
PROC: 0WUF0JZ Supplement Abdominal Wall with Synthetic Substitute, Open Approach (ICD-10-PCS; 2020-02-20)
PROC: 0DBW0ZZ Excision of Peritoneum, Open Approach (ICD-10-PCS; 2020-02-20)
PROC: 0DBU0ZZ Excision of Omentum, Open Approach (ICD-10-PCS; 2020-02-20)
PROC: 0DNW0ZZ Release Peritoneum, Open Approach (ICD-10-PCS; 2020-02-20)
PROC: 3E0M05Z Introduction of Adhesion Barrier into Peritoneal Cavity, Open Approach (ICD-10-PCS; 2020-02-20)
PROC: 07923ZX Drainage of Left Neck Lymphatic, Percutaneous Approach, Diagnostic (ICD-10-PCS; 2020-02-22)
PROC: 0G9G3ZX Drainage of Left Thyroid Gland Lobe, Percutaneous Approach, Diagnostic (ICD-10-PCS; 2020-02-22)
DX: K43.0 Incisional hernia with obstruction, without gangrene (principal); K56.2 Volvulus; K56.51 Intestinal adhesions [bands], with partial obstruction; E06.3 Autoimmune thyroiditis; R59.0 Localized enlarged lymph nodes; F41.9 Anxiety disorder, unspecified; F32.9 Major depressive disorder, single episode, unspecified; G43.909 Migraine, unspecified, not intractable, without status migrainosus; E78.5 Hyperlipidemia, unspecified; E61.0 Copper deficiency; E60 Dietary zinc deficiency; E03.9 Hypothyroidism, unspecified; K21.9 Gastro-esophageal reflux disease without esophagitis; D50.9 Iron deficiency anemia, unspecified; E78.2 Mixed hyperlipidemia; E55.9 Vitamin D deficiency, unspecified; Z98.84 Bariatric surgery status; Z98.51 Tubal ligation status; Z79.890 Hormone replacement therapy; Z79.899 Other long term (current) drug therapy; Z98.890 Other specified postprocedural states; Z91.030 Bee allergy status; Z87.891 Personal history of nicotine dependence
CPT/HCPCS: 36415; 70491; 70491-26; 76536; 76536-26; 76942; 80053; 82607; 82728; 83735; 84100; 84443; 85027; 86376; 86800; 88112; 88302; 88305; 94762; A9270-GY; C1781; C9113; J0171; J0330; J0690; J1100; J1170; J1650; J2020; J2185; J2250; J2270; J2405; J2704; J2710; J2795; J3010; J3410; J3411; J3420; J3475; J3490; J7050; J7120; J7121; Q9967

== ENCOUNTER 2020-03-16 06:00 | Inpatient (IN) | payer MEDICAID ==
[2020-03-16] MEDS ORDERED: Acetaminophen 500 MG Tab PO ONE (06:30)
[2020-03-16] MEDS ORDERED: Scopolamine 1.5 MG Transdermal Patch TOP SCH (06:30)
[2020-03-16] MEDS ORDERED: Succinylcholine 200 MG/10 ML MDV ONE (06:58)
[2020-03-16] MEDS ORDERED: Ondansetron 4 MG/2 ML SDV ONE (06:58)
[2020-03-16] MEDS ORDERED: Neostigmine Methylsulfate 1 MG/ML 5 ML Syringe ONE (06:58)
[2020-03-16] MEDS ORDERED: fentaNYL 250 MCG/5 ML SDV ONE (06:58)
[2020-03-16] MEDS ORDERED: Glycopyrrolate 0.2 MG/ML 5 ML MDV ONE (06:58)
[2020-03-16] MEDS ORDERED: Dexamethasone 4 MG/ML SDV ONE ×2 (06:58→07:02)
[2020-03-16] MEDS ORDERED: Propofol 200 MG/20 ML SDV ONE ×2 (06:58→07:01)
[2020-03-16] MEDS ORDERED: Rocuronium 50 MG/5 ML Vial ONE (06:58)
[2020-03-16] MEDS ORDERED: fentaNYL 100 MCG/2 ML SDV ONE ×3 (07:01→08:54)
[2020-03-16] MEDS ORDERED: Midazolam 1 MG/ML 2 ML SDV ONE (07:01)
[2020-03-16] MEDS ORDERED: cefOXitin 2 GM in Sodium Chloride 0.9% 50 ML IV ONE (07:30)
[2020-03-16] MEDS ORDERED: Ketamine 500 MG/5 ML MDV IV SCH (07:45)
[2020-03-16] MEDS ORDERED: Ketamine 50 MG in Sodium Chloride 0.9% 49.5 ML IV SCH (07:45)
[2020-03-16] MEDS ORDERED: Ropivacaine 44 ML, dexAMETHasone 8 MG, EPINEPHrine 0.4 MG, Sodium Chloride 0.9% 33.6 ML NERVRT SCH ×4 (07:45)
[2020-03-16] MEDS ORDERED: Potassium Chloride 20 MEQ, Lidocaine 1% 2 ML in Sodium Chloride 0.9% 100 ML IV ONE (08:00)
[2020-03-16] MEDS ORDERED: Meropenem 500 MG SDV ONE (08:47)
[2020-03-16] MEDS ORDERED: Bupivacaine 0.5% 50 ML MDV ONE (08:55)
[2020-03-16] MEDS ORDERED: Lidocaine 1% with EPINEPHrine 1:100,000 50 ML MDV ONE (08:56)
[2020-03-16] MEDS ORDERED: Naloxone 0.4 MG/ML SDV IV PRN (10:00)
[2020-03-16] MEDS ORDERED: hydrOXYzine HCL 100 MG/2 ML SDV IM ONE (10:08)
[2020-03-16] MEDS: HYDROmorphone/Normal Saline 15 MG/30 ML PCA IV PRN (10:10)
[2020-03-16] MEDS ORDERED: diphenhydrAMINE 50 MG/ML SDV IVPUSH PRN (11:47)
[2020-03-16] MEDS ORDERED: Ondansetron 4 MG/2 ML SDV IVPUSH PRN (12:00)
[2020-03-16] MEDS: diphenhydrAMINE 25 MG Cap PO PRN ×2 (12:19→18:06)
[2020-03-16] MEDS: cefOXitin 2 GM in Sodium Chloride 0.9% 50 ML IV SCH ×2 (14:08→19:38)
[2020-03-16] MEDS: Pantoprazole 40 MG Vial IVPUSH SCH (15:33)
[2020-03-16] MEDS: Acetaminophen 500 MG Tab PO SCH ×2 (15:33→21:39)
[2020-03-16] MEDS ORDERED: Potassium Chloride 20 MEQ, Lidocaine 1% 2 ML in Sodium Chloride 0.9% 100 ML IV SCH (18:30)
[2020-03-16] MEDS ORDERED: Potassium Chloride 100 ML ONE (19:31)
[2020-03-16] MEDS: Dextrose 5%-Lactated Ringers 1,000 ML IV SCH (20:29)
[2020-03-16] MEDS: Potassium Chloride 20 MEQ in Premix Bag 1 BAG IV SCH ×2 (20:31→22:48)
[2020-03-17] MEDS: diphenhydrAMINE 25 MG Cap PO PRN (00:55)
[2020-03-17] MEDS: cefOXitin 2 GM in Sodium Chloride 0.9% 50 ML IV SCH ×4 (02:08→19:27)
[2020-03-17] MEDS: Acetaminophen 500 MG Tab PO SCH ×4 (04:20→21:45)
[2020-03-17] MEDS: Dextrose 5%-Lactated Ringers 1,000 ML IV SCH ×2 (07:15→18:26)
[2020-03-17] MEDS: Levothyroxine 50 MCG Tab PO SCH (07:16)
[2020-03-17] MEDS: HYDROmorphone/Normal Saline 15 MG/30 ML PCA IV PRN (10:21)
[2020-03-17] MEDS: Sertraline 50 MG Tab PO SCH (10:22)
[2020-03-17] MEDS: hydrOXYzine HCL 100 MG/2 ML SDV IM PRN ×2 (13:15→21:45)
[2020-03-17] MEDS: oxyCODONE 5 MG Tab PO PRN ×2 (13:27→19:26)
[2020-03-17] MEDS: Pantoprazole 40 MG Vial IVPUSH SCH (15:32)
[2020-03-17] MEDS: Cyclobenzaprine 10 MG Tab PO PRN (22:08)
[2020-03-18] MEDS: cefOXitin 2 GM in Sodium Chloride 0.9% 50 ML IV SCH ×2 (01:09→07:47)
[2020-03-18] MEDS: oxyCODONE 5 MG Tab PO PRN ×3 (01:09→11:53)
[2020-03-18] MEDS: Acetaminophen 500 MG Tab PO SCH ×2 (03:19→09:01)
[2020-03-18] MEDS: Cyclobenzaprine 10 MG Tab PO PRN ×2 (04:07→14:06)
[2020-03-18] MEDS: Dextrose 5%-Lactated Ringers 1,000 ML IV SCH (05:36)
[2020-03-18] MEDS ORDERED: Polyethylene Glycol 3350 Powder 17 GM Packet PO ONE (06:51)
[2020-03-18] MEDS ORDERED: Magnesium Hydroxide 400 MG/5 ML Susp 30 ML Cup PO ONE (06:51)
[2020-03-18] MEDS: Levothyroxine 50 MCG Tab PO SCH (07:48)
--- NOTE | 2020-03-18 07:50 | PN ---
DATE OF SERVICE: 03/18/2020 SUBJECTIVE: Marge has not had a bowel movement yet. Pain continues to be semi-managed by oxycodone and Flexeril. She continues to report it as 6/10. She has been up ambulating. Oral intake 1400, urine output 2000. YIN drain put out 200 of a serosanguineous drainage. REVIEW OF SYSTEMS: Remainder of review of systems negative for any pertinent positives and negatives. OBJECTIVE: GENERAL: Marge is a pleasant 39-year-old female. She is alert and oriented, resting comfortably in bed. VITAL SIGNS: TPR at 0300; 97.3, 51, 15, blood pressure 103/62. HEENT: Negative. NECK: Supple. HEART: Regular rate and rhythm. LUNGS: Clear. ABDOMEN: Dressings dry and intact. Abdominal binder is on. EXTREMITIES: Without peripheral edema. ASSESSMENT: Diagnostic laparoscopy turned to laparotomy with: 1. Cholecystectomy. 2. Excision of peritoneal implant adjacent to mesh. POSTOPERATIVE DIAGNOSES: 1. Chronic cholecystitis with sludge in the gallbladder. 2. Peritoneal implant, 6.0 cm adjacent to upper aspect of the mesh. 3. Extensive intraabdominal adhesions. Date of procedure: 03/16/2020. Surgeon: Graham Myers MD. PLAN: 1. May shower. 2. Milk of magnesia 30 mL. 3. Dulcolax 20 mg p.o. 1 hour after milk of magnesia. 4. MiraLAX 119 g p.o. 1 time today. 5. Communication order written patient history of Hayden-en-Y gastric bypass surgery. 6. Continue use of incentive spirometer and ambulation. 7. We will evaluate p.r.n. or in a.m. Patsy Fernandez PA-C /[id number]
[2020-03-18] MEDS ORDERED: Bisacodyl 5 MG Tab PO ONE (08:00)
[2020-03-18] MEDS: Sertraline 50 MG Tab PO SCH (08:00)
[2020-03-18] MEDS ORDERED: Pantoprazole 40 MG Tab.CR PO SCH (09:00)
[2020-03-18] MEDS ORDERED: Polyethylene Glycol 3350 Powder 119 GM Bottle PO ONE (09:00)
--- NOTE | 2020-03-19 08:00 | DISCH ---
ADMISSION DIAGNOSIS: Biliary dyskinesia. DISCHARGE DIAGNOSIS: Diagnostic laparoscopy turned to laparotomy with: 1. Cholecystectomy. 2. Excision of peritoneal implant adjacent to mesh. POSTOPERATIVE DIAGNOSES: 1. Chronic cholecystitis with sludge in gallbladder. 2. Peritoneal implant 6.0, adjacent to upper aspect of the mesh. 3. Extensive intraabdominal adhesions. Date of procedure: 03/16/2020. Surgeon: Graham Myers MD. HISTORY: Marge is a pleasant 39-year-old female who had symptomatic biliary dyskinesia. After preoperative evaluation and discussion of possible risks and possible complications, she wished to proceed with surgical procedure. HOSPITAL COURSE: Surgery was on 03/16/2020. There were no operative complications. On postoperative day #1, the pain was controlled with the [employer] and she was switched to oral pain medications, tolerated the diet well, and on postoperative day #2, she was ready to be discharged to home without any complications. PHYSICAL EXAMINATION: GENERAL: Marge Patterson is a pleasant 39-year-old female. VITAL SIGNS: Height 5 feet 7 inches, weight is 189 pounds, BMI is 29. TPR is 96.6, 65, 16, blood pressure 121/78. HEENT: Negative. NECK: Supple. HEART: Regular rate and rhythm. LUNGS: Clear. ABDOMEN: Aquacel dressings on her right incision and abdominal binder is on. EXTREMITIES: Without peripheral edema. DISPOSITION: Discharged to home. CONDITION: Stable and improving. FOLLOWUP: Followup appointment with Patsy Fernandez PA-C at [facility] on 03/27/2020 at 10:15 a.m. HOME MEDICATIONS: Oxycodone 5 mg p.o. q.4 hours p.r.n. pain #42 and Flexeril 10 mg p.o. q.6 hours p.r.n. #30. She is to resume her home medications. DIET: Step-4 gastric bypass diet. Drink 8 to 10 glasses of water a day. ACTIVITY: Driving: Do not drive for 1 week and while on pain medication. Shower/bathing: May shower. Wound incision care: Keep operative site clean and dry. Wear abdominal binder for 6 weeks if tolerated. Take off Aquacel dressing in 3 days on , 03/21/2020. DISCHARGE INSTRUCTIONS: Notify provider if any fever, increased pain, swelling or redness, nausea or vomiting. SPECIAL INSTRUCTION: Use incentive spirometer 10 times every hour while awake for 1 week.
--- NOTE | 2020-03-20 13:27 | OR ---
DATE OF PROCEDURE: 03/16/2020 SURGEON: Graham Myers MD PREOPERATIVE DIAGNOSIS: Chronic cholecystitis with sludge or stones in gallbladder. POSTOPERATIVE DIAGNOSES: 1. Chronic cholecystitis with fine sludge in the gallbladder. 2. Peritoneal implant (6 cm) adjacent to upper aspect of the abdominal wall mesh. 3. Extensive intraabdominal adhesions. OPERATIVE PROCEDURES: Diagnostic laparoscopy converted to laparotomy with: 1. Cholecystectomy (96237). 2. Excision of peritoneal implant, abdominal wall adjacent to the mesh (03241). ANESTHESIA: General. INDICATIONS FOR PROCEDURE: This 39-year-old female presenting with ongoing right upper quadrant pain. She is recently status post a repair of incisional hernia with mesh via an open approach. Plan will be to proceed with diagnostic laparoscopy through the lower abdomen, and if the upper abdomen is accessible laparoscopically, we would proceed with a laparoscopic cholecystectomy. Otherwise, if there is too much in the way of adhesions, we may need to go to an open approach, in this case it would be a right subcostal incision so as to avoid directly dividing the recently placed mesh. Potential risks of the procedure including bleeding, infection, injury to underlying viscera, problems with stones migrating to the common bile duct requiring additional procedures or correction were all reviewed, and the patient wishes to proceed. DETAILS OF PROCEDURE: The patient was taken to the operating room, placed in a supine position. After general endotracheal anesthesia was induced, a Thurman catheter inserted, and the abdomen prepped and draped. In the right lower quadrant, a transverse incision was made and the peritoneal cavity entered under direct vision with an Optiview trocar. Just above that, there was a broad field of adhesions underlying the recently placed mesh. These are at this point dense after they did not fall back with any sort of dissection, and it was felt at this point it would be best to proceed with an open approach, the cholecystectomy. Trocar was removed and the peritoneal cavity deflated. Right subcostal incision was made and carried down through the skin and subcutaneous tissue, musculofascial layers, and the peritoneum. We will avoid going directly on the previously- placed mesh. The gallbladder was edematous and quite elongated and distended consistent with an ongoing cholecystitis. The gallbladder was retracted anteriorly and laterally and dissection began with electrocautery on the area of cystic duct triangle. Once the cystic artery and cystic duct were both well delineated, both were taken with a NATHALIE chester load. The remaining attachments to the gallbladder and liver were taken down with electrocautery along the area what appeared to be an additional vessel coming into the gallbladder was clipped and the gallbladder delivered from the field. It was noted to contain some fine sludge within it consistent with the preoperative imaging. One additional finding was that of a 6 cm peritoneal implant. This was located superior to the mesh on the underside of the abdominal wall. This was excised for histologic confirmation and was benign. At that point, no further problems were noted. A Sai- Thapa drain was taken out through the wound lateral to the main incision. The incision was then closed with 2 layers of #2 Vicryl stitch to the peritoneal and fascial layers, and subcutaneous tissue with 2 layers of 3-0 and 4-0 Vicryl stitch and the skin with amarjit. Drain was fixed with 3-0 Vicryl stitch. Prior to closure, transversus abdominis plane blocks were placed. Both of these were placed on the right side given the position of the incision and the incision was then anesthetized with 0.5% Marcaine with lidocaine as well. The patient was taken to the recovery room in satisfactory condition. There were no evident complications. Graham Myers MD /[id number]
--- NOTE | 2020-03-20 13:31 | PN ---
DATE OF SERVICE: 03/17/2020 The patient has been afebrile with stable vital signs. No major problems have been noted overnight. Urine output is quite high, and we will back down the IV rate and watch output. Of note, her TSH now is down to 4.25, just barely above normal, so we are doing well in that regard. Will go to a regular diet today. We will discontinue the Thurman catheter. She will continue and we will leave the [employer] going for today. Graham Myers MD /[id number]
== END 2020-03-18 14:10 | disposition home or self-care (01) | DRG 416 ==
LOC: JP.MS 06:00 → JP.SDS 06:00 → EDSTATUS 07:30 → JP.MS 09:30
PROVIDERS: ADMIT Surgery; ATTEND Surgery
PROC: 0DBW0ZZ Excision of Peritoneum, Open Approach (ICD-10-PCS; principal; 2020-03-16)
PROC: 0DNW0ZZ Release Peritoneum, Open Approach (ICD-10-PCS; principal; 2020-03-16)
PROC: 0FT40ZZ Resection of Gallbladder, Open Approach (ICD-10-PCS; principal; 2020-03-16)
PROC: 0FJ44ZZ Inspection of Gallbladder, Percutaneous Endoscopic Approach (ICD-10-PCS; principal; 2020-03-16)
DX: K82.8 Other specified diseases of gallbladder (principal); K81.1 Chronic cholecystitis; K66.0 Peritoneal adhesions (postprocedural) (postinfection); Z96.89 Presence of other specified functional implants; K21.9 Gastro-esophageal reflux disease without esophagitis; D50.0 Iron deficiency anemia secondary to blood loss (chronic); G43.909 Migraine, unspecified, not intractable, without status migrainosus; E78.2 Mixed hyperlipidemia; E55.9 Vitamin D deficiency, unspecified; Z91.030 Bee allergy status; Z91.09 Other allergy status, other than to drugs and biological substances; Z87.891 Personal history of nicotine dependence
CPT/HCPCS: 36415; 80053; 82728; 83735; 84100; 84443; 85025; 85027; 88304; 88305; 94762; A9270-GY; C9113; J0171; J0330; J0694; J1100; J1170; J2001; J2185; J2250; J2405; J2704; J2710; J2795; J3010; J3410; J3480; J3490; J7050; J7121

== ENCOUNTER 2020-06-25 12:32 | Inpatient (IN) | payer MEDICAID ==
[2020-06-25] MEDS ORDERED: Sodium Chloride 0.9% 10 ML Syringe FLUSH PRN (12:41)
[2020-06-25] MEDS ORDERED: Ondansetron 4 MG/2 ML SDV IVPUSH PRN ×2 (12:41→19:00)
[2020-06-25] MEDS ORDERED: Ondansetron 4 MG/2 ML SDV ONE ×2 (12:44→14:55)
[2020-06-25] MEDS ORDERED: Dextrose 5%-Lactated Ringers 1,000 ML IV SCH (12:45)
[2020-06-25] MEDS ORDERED: diphenhydrAMINE 50 MG/ML SDV IVPUSH PRN ×2 (12:48→19:00)
[2020-06-25] MEDS ORDERED: Naloxone 0.4 MG/ML SDV IVPUSH PRN ×2 (12:48→18:41)
[2020-06-25] MEDS ORDERED: diphenhydrAMINE 25 MG Cap PO PRN (12:48)
[2020-06-25] MEDS ORDERED: HYDROmorphone/Normal Saline 15 MG/30 ML PCA IV PRN (13:00)
[2020-06-25] MEDS ORDERED: Ketamine 500 MG/5 ML MDV IV SCH ×3 (13:00→14:30)
--- NOTE | 2020-06-25 13:15 | PCM.HP.2 ---
H&P History of Present Illness - General Date of Service: 06/25/20 Admit Problem/Dx: Admission Diagnosis/Problem Admission Diagnosis/Problem Small bowel obstruction due to adhesions History Limitations: Reports: Other (Acute pain. 610 and recently had IV pain medication in the ambulance so is drowsy. ) - History of Present Illness Onset of Symptoms: Reports: Gradual Symptom Onset Date: 06/08/20 Location: Reports: Abdomen (left upper quadrant and radiates throughout entire abdomen and into back. ) Quality: Reports: Ache, Burning, Dull, Pressure, Sharp, Stabbing, Throbbing Improves with: Reports: Medication Worsens with: Reports: None Context: Reports: Sick Contact Associated Symptoms: Reports: Diaphoresis, Weakness Other HPI/Comments: Marge developed left upper quadrant pain that was intermittent associated with no symptoms on 06/08/2020. She had a CT Scan that was negative for any bowel obstruction on 06/12/2020 but did show some ovarian cysts. Pain continued intermittent and wasn't bad until 1:00 am when the pain woke her up from a deep sleep. Pain continued to get worse and she went to her local ED. Pain was a 10/10 and after pain medication given through her IV pain is a 6/10. No associated signs and symptoms. Pain varies from dull, sharp, throbbing and radiates to entire abdomen and back. Transferred from [place] via ambulance CT Scan from [place]: The bowel is dilated to about 3.5 cm. an air fluid level is seen. - Related Data Allergies/Adverse Reactions: Allergies Allergy/AdvReac Type Severity Reaction Status Date / Time bee venom protein (honey bee) Allergy Hives Verified 06/25/20 13:09 Home Medications: Home Meds Cholecalciferol (Vitamin D3) [Vitamin D3] 5,000 unit PO DAILY 12/28/17 [History] Cyanocobalamin (Vitamin B12) [Vitamin B12] 500 mcg PO DAILY 12/30/17 [History] Levothyroxine [Synthroid] 125 mcg PO DAILY 12/30/17 [History] Multivitamin [Multivitamins] 1 tab PO BID 12/30/17 [History] EPINEPHrine [Epinephrine] 0.3 mg IM ASDIRECTED 02/19/20 [History] Sertraline HCl 50 mg PO DAILY 02/19/20 [History] Vitamin A 10,000 unit PO DAILY 03/16/20 [History] Acetaminophen [Tylenol Extra Strength] 1,000 mg PO Q6H tablet 03/18/20 [Rx] Vitamin B Complex/Folic Acid [Vitamin B-100 Complex] 1 tab PO DAILY 06/25/20 [History] Zinc 50 mg PO DAILY 06/25/20 [History] Past Medical History HEENT History: Reports: Impaired Vision Other HEENT History: wears glasses Cardiovascular History: Reports: High Cholesterol, SOB on Exertion Respiratory History: Reports: Pneumonia, Recurrent Gastrointestinal History: Reports: GERD, PUD Genitourinary History: Reports: None HARD TILE SETTER History: Reports: Ectopic , Neurological History: Reports: Headaches, Chronic, Migraines Psychiatric History: Reports: Anxiety, Depression Endocrine/Metabolic History: Reports: Hypothyroidism, Vitamin D Deficiency Hematologic History: Reports: Anemia, B12 Deficiency - Infectious Disease History Infectious Disease History: Reports: Chicken Pox - Past Surgical History HEENT Surgical History: Reports: LASIK Cardiovascular Surgical History: Reports: None Respiratory Surgical History: Reports: None GI Surgical History: Reports: Bariatric Procedure, Colonoscopy, EGD, Hernia, Abdominal Female Surgical History: Reports: Breast Biopsy, Section, Hysterectomy, Salpingo-Oophorectomy, Other (See Below) Other Female Surgeries/Procedures: has left ovary still Endocrine Surgical History: Reports: None Neurological Surgical History: Reports: None Dermatological Surgical History: Reports: None Social & Family History - Family History Family Medical History: No Pertinent Family History Cardiac: Reports: Heart Failure, Hypertension : Reports: Renal Calculus, UTI, Recurrent Neurological: Reports: CVA Endocrine/Metabolic: Reports: Diabetes, type II - Caffeine Use Caffeine Use: Reports: Coffee H&P Review of Systems - Review of Systems: Review Of Systems: See Below General: Reports: Weakness, Fatigue HEENT: Reports: No Symptoms Pulmonary: Reports: No Symptoms Cardiovascular: Reports: No Symptoms Gastrointestinal: Reports: Abdominal Pain Genitourinary: Reports: No Symptoms Musculoskeletal: Reports: No Symptoms Skin: Reports: No Symptoms Psychiatric: Reports: No Symptoms Neurological: Reports: No Symptoms Hematologic/Lymphatic: Reports: No Symptoms Immunologic: Reports: No Symptoms Exam - Exam Exam: See Below - Exam Quality Assessment: DVT Prophylaxis General: Moderate Distress HEENT: PERRLA Neck: Supple, Trachea Midline Lungs: Clear to Auscultation, Normal Respiratory Effort Cardiovascular: Regular Rate, Regular Rhythm GI/Abdominal Exam: Distended, Guarding, Tender (in all 4 quadrants ) (Female) Exam: Deferred Rectal (Female) Exam: Deferred Back Exam: Normal Inspection Extremities: Normal Inspection, No Pedal Edema Skin: Cool Neurological: Cranial Nerves Intact Neuro Extensive - Mental Status: Alert, Oriented x3 Neuro Extensive - Motor, Sensory, Reflexes: CN II-XII Intact Psychiatric: Other (severe pain ) - Patient Data Lab Results Last 24 hrs: Laboratory Results - last 24 hr 06/25/20 Range/Units 13:02 WBC 4.8 (4.5-11.0) K/uL RBC 4.31 (3.30-5.50) M/uL Hgb 12.2 (12.0-15.0) g/dL Hct 39.3 (36.0-48.0) % MCV 91 (80-98) fL MCH 28 (27-31) pg MCHC 31 L (32-36) % Plt Count 190 (150-400) K/uL Neut % (Auto) 64 (36-66) % Lymph % (Auto) 28 (24-44) % Bradley % (Auto) 7 H (2-6) % Eos % (Auto) 1 L (2-4) % Baso % (Auto) 0 (0-1) % Result Diagrams: 06/25/20 13:02 - Problem List (1) Partial small bowel obstruction SNOMED Code(s): 709023349 ICD Code: K56.600 - PARTIAL INTESTINAL OBSTRUCTION, UNSPECIFIED TO CAUSE Status: Acute Current Visit: Yes Problem List Initiated/Reviewed/Updated: Yes Orders Last 24hrs: Active Orders 24 hr Category Date Time Status Patient Status [ADT] Routine ADT 06/25/20 12:41 Ordered Activity as Tolerated [RC] .Routine Care 06/25/20 12:41 Ordered Ambulate [RC] QID Care 06/25/20 12:41 Ordered Antiembolic Devices [RC] .Routine Care 06/25/20 12:41 Ordered Cardiac Monitoring [RC] CONTINUOUS Care 06/25/20 12:42 Ordered Communication Order [RC] Per Unit Routine Care 06/25/20 12:48 Ordered Height and Weight [RC] UPON Care 06/25/20 12:41 Ordered Intake and Output [RC] QSHIFT Care 06/25/20 12:42 Ordered May Shower [RC] ASDIRECTED Care 06/25/20 12:41 Ordered ELECTRONIC LAB TECHNICIAN Record [RC] Q4H Care 06/25/20 12:48 Ordered Peripheral IV Care [RC] . DIRECTED Care 06/25/20 12:41 Ordered Peripheral IV Care [RC] . DIRECTED Care 06/25/20 12:42 Ordered Pulse Oximetry [RC] CONTINUOUS Care 06/25/20 12:42 Ordered Up to Chair [RC] QID Care 06/25/20 12:41 Ordered Verify Patient Consent Obtain [RC] ASDIRECTED Care 06/25/20 12:50 Ordered Vital Signs [RC] PER UNIT ROUTINE Care 06/25/20 12:48 Ordered Vital Signs [RC] Q4H Care 06/25/20 12:41 Ordered COMPREHENSIVE METABOLIC PN,CMP [CHEM] Routine Lab 06/25/20 12:41 Ordered MAGNESIUM [CHEM] Routine Lab 06/25/20 12:41 Ordered Dextrose 5%-Lactated Ringers 1,000 ml Med 06/25/20 12:45 Ordered IV ASDIRECTED HYDROmorphone/Normal Saline [Dilaudid ELECTRONIC LAB TECHNICIAN 15 MG in NS Med 06/25/20 13:00 Ordered 30 ML] 15 mg IV ASDIRECTED Ketamine [Ketalar] Med 06/25/20 13:00 Ordered See Dose Instructions IV ASDIRECTED Ketamine [Ketalar] Med 06/25/20 13:00 Ordered See Dose Instructions IV BOLUS Naloxone [Narcan] Med 06/25/20 12:48 Ordered 0.04 mg IVPUSH Q3M PRN Ondansetron [Zofran] Med 06/25/20 12:41 Ordered 4 mg IVPUSH Q6H PRN Pantoprazole [ProTONIX IV] Med 06/25/20 12:45 Ordered 40 mg IVPUSH DAILY Sodium Chloride 0.9% [Saline Flush] Med 06/25/20 12:41 Ordered 10 ml FLUSH ASDIRECTED PRN Tap Block [Tap Block, Pharmacy to Dose] Med 06/25/20 13:00 Ordered See Dose Instructions NERVRT ASDIRECTED cefOXitin [Mefoxin] 2 gm Med 06/25/20 12:56 Ordered Sodium Chloride 0.9% [Normal Saline] 50 ml IV ONETIME diphenhydrAMINE [Benadryl] Med 06/25/20 12:48 Ordered 25 mg IVPUSH Q6H PRN diphenhydrAMINE [Benadryl] Med 06/25/20 12:48 Ordered 25 mg PO Q6H PRN Peripheral IV Insertion Adult [OM.PC] Routine Oth 06/25/20 12:41 Ordered Pulse Oximetry Continuous Monitoring [OM.PC] Routine Oth 06/25/20 12:48 Ordered Sequential Compression Device [OM.PC] Routine Oth 06/25/20 12:41 Ordered Resuscitation Status Routine Resus Stat 06/25/20 12:41 Ordered Medication Orders Diphenhydramine HCl (Benadryl) 25 mg IVPUSH Q6H PRN PRN Reason: Itching Diphenhydramine HCl (Benadryl) 25 mg PO Q6H PRN PRN Reason: Itching Hydromorphone HCl (Dilaudid Crane Helper 15 Mg In Ns 30 Ml) 15 mg IV ASDIRECTED BREEZY; Protocol Dextrose/Lactated Ringer's (Dextrose 5%-Lactated Ringers) 1,000 mls @ 150 mls/hr IV ASDIRECTED BREEZY Cefoxitin Sodium 2 gm/ Sodium (Chloride) 50 mls @ 100 mls/hr IV ONETIME ONE Stop: 06/25/20 13:25 Ketamine HCl (Ketalar) 0 mg IV BOLUS BREEZY Ketamine HCl (Ketalar) 0 mg IV ASDIRECTED BREEZY Naloxone HCl (Narcan) 0.04 mg IVPUSH Q3M PRN PRN Reason: Respiratory Depression Non-Formulary Medication (Tap Block, Pharmacy To Dose) 0 ml NERVRT ASDIRECTED [facility] Ondansetron HCl (Zofran) 4 mg IVPUSH Q6H PRN PRN Reason: Nausea/Vomiting Pantoprazole Sodium (Protonix Iv) 40 mg IVPUSH Q24H BREEZY Sodium Chloride (Saline Flush) 10 ml FLUSH ASDIRECTED PRN PRN Reason: Keep Vein Open Assessment/Plan Comment:: Assessment: Partial Small Bowel Obstruction Abdominal Pain SP RNY Gastric Bypass Surgery Hypothyroidism Vitamin B12 Deficiency Vitamin D Deficiency Plan: Scheduled: Exploratory Laparotomy for Partial Small Bowel Obstruction and Possible Small Bowel Resection. Case to Follow today - 06/25/2020 General Anesthesia, Tap Block, Ketamine Bolus, Ketamine Drip, Magnesium Bolus and Drip Cefoxitin 2 Grams IV news production assistant to Or. Labs ordered. Dilaudid ELECTRONIC LAB TECHNICIAN See copy of the rest of the orders in [facility]. Patient admitted as Inpatient. Plan of hospitalization 4 nights and 5 days. After preoperative evaluation and discussion of possible risks and complications patient wishes to proceed with surgical procedure. Graham Myers MD was consulted and developed plan of care for this patient. Patsy HURST C - Mortality Measure Prognosis:: Good
[2020-06-25] MEDS ORDERED: Meropenem 500 MG SDV ONE (13:23)
[2020-06-25] MEDS ORDERED: Pantoprazole 40 MG Vial IVPUSH SCH (13:30)
[2020-06-25] MEDS ORDERED: cefOXitin 2 GM in Sodium Chloride 0.9% 50 ML IV ONE (14:00)
[2020-06-25] MEDS ORDERED: Magnesium Sulfate 2.4 GM in Sodium Chloride 0.9% 100 ML IV SCH (14:30)
[2020-06-25] MEDS ORDERED: Ropivacaine 40 ML, dexAMETHasone 8 MG, EPINEPHrine 0.4 MG, Sodium Chloride 0.9% 37.6 ML NERVRT SCH ×4 (14:30)
[2020-06-25] MEDS ORDERED: Ketamine 50 MG in Sodium Chloride 0.9% 49.5 ML IV SCH (14:30)
[2020-06-25] MEDS ORDERED: fentaNYL 250 MCG/5 ML SDV ONE (14:54)
[2020-06-25] MEDS ORDERED: Glycopyrrolate 0.2 MG/ML 5 ML MDV ONE (14:55)
[2020-06-25] MEDS ORDERED: Neostigmine Methylsulfate 1 MG/ML 5 ML Syringe ONE (14:55)
[2020-06-25] MEDS ORDERED: Propofol 200 MG/20 ML SDV ONE (14:55)
[2020-06-25] MEDS ORDERED: Dexamethasone 4 MG/ML SDV ONE (14:55)
[2020-06-25] MEDS ORDERED: Succinylcholine 200 MG/10 ML MDV ONE (14:55)
[2020-06-25] MEDS ORDERED: Magnesium Sulfate 3.8 GM in Sodium Chloride 0.9% 250 ML IV ONE (15:00)
[2020-06-25] MEDS ORDERED: Rocuronium 50 MG/5 ML Vial ONE (15:37)
[2020-06-25] MEDS ORDERED: Bupivacaine 0.5% 50 ML MDV ONE (16:22)
[2020-06-25] MEDS ORDERED: Lidocaine 1% with EPINEPHrine 1:100,000 50 ML MDV ONE (16:22)
[2020-06-25] MEDS: Dextrose 5%-Lactated Ringers 1,000 ML IV SCH ×2 (18:39→23:30)
[2020-06-25] MEDS ORDERED: HYDROmorphone/Normal Saline 15 MG/30 ML PCA IV SCH (18:45)
[2020-06-25] MEDS ORDERED: Metoclopramide 10 MG/2 ML SDV IVPUSH PRN (19:00)
[2020-06-25] MEDS ORDERED: Calcium Gluconate 10% 1 GM/10 ML SDV IVPUSH PRN (19:00)
[2020-06-25] MEDS ORDERED: Cyclobenzaprine 10 MG Tab PO PRN (19:00)
[2020-06-25] MEDS ORDERED: hydrOXYzine HCL 100 MG/2 ML SDV IM PRN (19:00)
[2020-06-25] MEDS ORDERED: Acetaminophen 500 MG Tab PO PRN (19:00)
[2020-06-25] MEDS ORDERED: Labetalol 20 MG/4 ML Syringe IVPUSH PRN (19:00)
[2020-06-25] MEDS ORDERED: Albuterol/Ipratropium 3.0-0.5 MG/3 ML Neb Soln INH PRN (19:00)
[2020-06-25] MEDS: cefOXitin 2 GM in Sodium Chloride 0.9% 50 ML IV SCH (20:40)
[2020-06-25] MEDS: Acetaminophen 500 MG Tab PO SCH (20:43)
[2020-06-25] MEDS: Heparin Sodium 5,000 Units/ML Vial SUBCUT SCH ×2 (20:44→21:59)
[2020-06-25] MEDS: Montelukast 10 MG Tab PO SCH (20:44)
[2020-06-26] MEDS: cefOXitin 2 GM in Sodium Chloride 0.9% 50 ML IV SCH ×4 (01:00→18:13)
[2020-06-26] MEDS ORDERED: Iopamidol 612 MG/ML 50 ML SDV PO STA (02:15)
[2020-06-26] MEDS: Acetaminophen 500 MG Tab PO SCH ×3 (03:46→19:54)
[2020-06-26] MEDS: Dextrose 5%-Lactated Ringers 1,000 ML IV SCH (06:10)
[2020-06-26] MEDS ORDERED: Ondansetron 4 MG Tab.DIS PO PRN (07:45)
[2020-06-26] MEDS ORDERED: Dextrose 5%-Lactated Ringers 1,000 ML IV SCH (07:45)
[2020-06-26] MEDS ORDERED: SCOPOLAMINE PATCH CHECK TOP SCH (09:00)
[2020-06-26] MEDS: Heparin Sodium 5,000 Units/ML Vial SUBCUT SCH ×2 (09:07→21:42)
[2020-06-26] MEDS: Celecoxib 200 MG Cap PO SCH ×2 (09:07→21:46)
[2020-06-26] MEDS: Sertraline 50 MG Tab PO SCH (09:07)
--- NOTE | 2020-06-26 09:13 | PN ---
DATE OF SERVICE: 06/26/2020 SUBJECTIVE: Marge is postoperative day 1. She had an emergency surgery yesterday. The pain is controlled using her LADDERMAN. Vital signs have been stable. She does have bradycardia which she states is normal for her, the lowest was 37. Oral intake 900. Urine output 1025 via Thurman catheter. Remainder of review of systems negative for any pertinent positives or negatives. OBJECTIVE: GENERAL: Marge Patterson is a pleasant 39-year-old female. VITAL SIGNS: TPR is 94.2, 43, 18. Blood pressure 126/72. HEENT: Negative. NECK: Supple. HEART: Regular rate and rhythm. LUNGS: Clear. ABDOMEN: Dressing dry and intact. EXTREMITIES: SCDs are on, and there is no peripheral edema. ASSESSMENT: Exploratory laparotomy with: 1. Lysis of adhesion for release of small-bowel obstruction. 2. Removal of peritoneal implant, abdominal wall. 3. Resection of peritoneal implant, small bowel mesentery. 4. Placement of Interceed mesh. POSTOPERATIVE DIAGNOSES: 1. Adhesive small bowel obstruction. 2. Peritoneal implant, anterior abdominal wall, causing small bowel obstruction (14 cm). 3. Separate peritoneal implants, small bowel mesenteric, 6 cm. 4. Extensive intraabdominal adhesions. Date of procedure, 06/25/2020. Surgeon: Graham Myers MD. PLAN: 1. Discontinue Thurman catheter. 2. Decrease IV to 100 mL per hour. 3. Step-3 gastric bypass diet. 4. Check CBC, CMP, and magnesium phosphatase in a.m. 5. Ambulate 6 times daily and use incentive spirometer 10 times every hour while awake. 6. We will evaluate p.r.n. or in a.m. Patsy Fernandez PA-C /[id number]
--- NOTE | 2020-06-26 09:40 | CR ---
UGI Limited HISTORY: Postbariatric surgery FINDINGS: Patient swallowed water-soluble contrast. Upright views of the abdomen show no evidence of extravasation or obstruction. IMPRESSION: Status post bariatric surgery No extravasation or obstruction seen
[2020-06-26] MEDS: Pantoprazole 40 MG Delayed-Release Granules 1 Packet PO SCH (12:05)
[2020-06-26] MEDS ORDERED: MVI, Adult with Vitamin K 10 ML, Thiamine 200 MG, Zinc/Copper/Manganese/Selenium 1 ML i... IV SCH ×8 (16:00)
[2020-06-26] MEDS: Montelukast 10 MG Tab PO SCH (21:46)
[2020-06-27] MEDS: Acetaminophen 500 MG Tab PO SCH ×3 (05:17→21:23)
[2020-06-27] MEDS: Celecoxib 200 MG Cap PO SCH ×2 (08:47→21:22)
[2020-06-27] MEDS: Sertraline 50 MG Tab PO SCH (08:47)
[2020-06-27] MEDS: Heparin Sodium 5,000 Units/ML Vial SUBCUT SCH ×3 (08:47→21:23)
[2020-06-27] MEDS: Docusate Sodium 100 MG Cap PO SCH ×2 (08:54→21:22)
[2020-06-27] MEDS: Bisacodyl 5 MG Tab PO SCH ×2 (08:54→21:17)
[2020-06-27] MEDS ORDERED: Cyanocobalamin (Vitamin B12) 1,000 MCG/ML SDV IM ONE (09:00)
[2020-06-27] MEDS: Pantoprazole 40 MG Delayed-Release Granules 1 Packet PO SCH (11:42)
[2020-06-27] MEDS: HYDROmorphone 2 MG Tab PO PRN (21:22)
[2020-06-27] MEDS: Montelukast 10 MG Tab PO SCH (21:23)
--- NOTE | 2020-06-27 22:16 | PN ---
DATE OF SERVICE: 06/27/2020 SUBJECTIVE: Marge has been quite sleepy. Oral intake 1800, output 1100. Pulse has increased from 55 to 64. She is not passing any flatus, has been up ambulating. Excessive somnolence thought to be due to PLACING JUDGE. REVIEW OF SYSTEMS: Remainder of review of systems negative for any pertinent positives and negatives. OBJECTIVE: GENERAL: Marge is a pleasant 39-year-old female, quite sleepy. VITAL SIGNS: TPR is 98.1, 55, 18, blood pressure 117/90. HEENT: Negative. NECK: Supple. HEART: Regular rate and rhythm. LUNGS: Clear. ABDOMEN: Aquacel dressing is on. Abdominal binder is on. EXTREMITIES: Without peripheral edema. ASSESSMENT: Exploratory laparotomy with: 1. Lysis of adhesions for release of small bowel obstruction. 2. Removal of peritoneal implant, abdominal wall. 3. Resection of peritoneal implants, small bowel mesentery. 4. Placement of Interceed mesh. POSTOPERATIVE DIAGNOSES: 1. Adhesive small bowel obstruction. 2. Peritoneal implant, anterior abdominal wall causing small bowel obstruction (14 cm). 3. Separate peritoneal implants, small bowel mesenteric (6 cm). 4. Extensive intra-abdominal adhesions. Date of procedure: 06/25/2020. Surgeon: Graham Myers MD. PLAN: Discontinue PLACING JUDGE, continuous pulse ox. Dilaudid 2 mg 1 to 2 every 4 hours p.r.n. pain. IV convert to saline lock. Dulcolax 10 mg tabs p.o. b.i.d. Colace 100 mg p.o. b.i.d. Continue use of incentive spirometer. We will evaluate p.r.n. or in a.m. Patsy Fernandez PA-C /[id number]
[2020-06-28] MEDS: Acetaminophen 500 MG Tab PO SCH ×2 (04:14→11:05)
[2020-06-28] MEDS: Sertraline 50 MG Tab PO SCH (08:38)
[2020-06-28] MEDS: Docusate Sodium 100 MG Cap PO SCH (08:38)
[2020-06-28] MEDS: Celecoxib 200 MG Cap PO SCH (08:38)
[2020-06-28] MEDS: Bisacodyl 5 MG Tab PO SCH (08:39)
--- NOTE | 2020-06-28 09:24 | DISCH ---
ADMISSION DIAGNOSES: 1. Partial small bowel obstruction. 2. Status post Hayden-en-Y gastric bypass surgery. 3. Unspecified surgical malabsorption. 4. B12 deficiency. 5. Chronic headaches. 6. Migraines. 7. Anxiety. 8. Depression. 9. Hypothyroidism. 10.Vitamin D deficiency. 11.History of iron deficiency anemia. DISCHARGE DIAGNOSES: Exploratory laparotomy with: 1. Lysis of adhesions for release of small bowel obstruction. 2. Removal of peritoneal implant, abdominal wall. 3. Resection of peritoneal implant, small bowel mesentery. 4. Placement of Interceed mesh. POSTOPERATIVE DIAGNOSES: 1. Adhesive small bowel obstruction. 2. Peritoneal implant anterior abdominal wall causing small bowel obstruction (14 cm). 3. Separate peritoneal implants, small bowel mesentery (6 cm). 4. Extensive intraabdominal adhesions. Date of procedure: 06/25/2020. Surgeon: Graham Myers MD. HISTORY: Marge Patterson is a pleasant 39-year-old female, who was transferred via ambulance from [place], [place] to [facility]. After preoperative evaluation and discussion of possible risks and possible complications, she wished to proceed with surgical procedure. HOSPITAL COURSE: Marge had her surgery on 06/25/2020. She had no operative complications. On postoperative day #1, her Thurman catheter was discontinued, IV decreased to 100 mL per hour. She was started on step 3 gastric bypass diet. On postoperative day #2, she was given bowel stimulation, started on oral pain medication. IV was converted to saline lock. On postop day #3, pain was well managed. Vital signs stable. Oral intake and output adequate, and she was able to be discharged to home. PHYSICAL EXAMINATION: GENERAL: Marge Patterson is a pleasant 39-year-old female. VITAL SIGNS: Height is 5 feet 7 inches, weight is 178 pounds, BMI is 27. TPR is 97.2, 56, 18, blood pressure 124/80. HEENT: Negative. NECK: Supple. HEART: Regular rate and rhythm. LUNGS: Clear. ABDOMEN: Aquacel dressings on. Abdominal binder is on. EXTREMITIES: Without peripheral edema. DISPOSITION: Discharged to home. CONDITION: Stable and improving. FOLLOWUP: Appointment with Patsy Fernandez PA-C, on 07/08/2020 at 10 a.m. HOME MEDICATIONS: 1. Celebrex 200 mg b.i.d. #28. 2. Dilaudid 2 to 4 mg every 4 hours p.r.n. pain, #42. 3. Tylenol Extra Strength 1000 mg oral q.8 hours p.r.n. pain. 4. She is to resume her home medications;. a. Vitamin D3 5000 International Units daily b.i.d. b. Vitamin B12 500 mcg oral daily. c. Epinephrine use as directed. d. Levothyroxine 200 mcg oral daily. e. Multivitamin 1 tablet oral twice daily. f. Sertraline 50 mg oral daily. g. Vitamin A 10,000 International Units daily. h. Vitamin B complex 1 daily. i. Zinc 50 mg oral daily. DIET: Drink 8 to 10 glasses of water a day. Step 3 gastric bypass diet. ACTIVITY: No lifting over 10 pounds for 6 weeks. OTHER ACTIVITY: Walk 6 times daily in your home. Driving: Do not drive for 1 week and while on pain medication. Shower/bathing: May shower. DISCHARGE INSTRUCTIONS: Notify provider if any fever, increased pain, swelling, redness, drainage, nausea, or vomiting. Keep site clean and dry. Wound incision care: Take off Aquacel dressing on 07/01/2020. Wear abdominal binder for 6 to 8 weeks. Use incentive spirometer 10 times every hour while awake for 1 week. /[id number]
[2020-06-28] MEDS: Heparin Sodium 5,000 Units/ML Vial SUBCUT SCH (10:07)
[2020-06-28] MEDS: HYDROmorphone 2 MG Tab PO PRN (11:03)
[2020-06-28] MEDS: Pantoprazole 40 MG Delayed-Release Granules 1 Packet PO SCH (11:04)
--- NOTE | 2020-07-09 09:48 | OR ---
DATE OF PROCEDURE: 06/25/2020 SURGEON: Graham Myers MD PREOPERATIVE DIAGNOSIS: Small bowel obstruction. POSTOPERATIVE DIAGNOSES: 1. Adhesive small bowel obstruction. 2. Peritoneal implant on the anterior abdominal wall causing a small bowel obstruction. 3. Separate peritoneal implant on small bowel mesentery. 4. Extensive intraabdominal adhesions. OPERATIVE PROCEDURE: Exploratory laparotomy with: 1. Lysis of adhesions for release of small bowel obstruction (15495). 2. Resection of peritoneal implant, anterior abdominal wall (32541). 3. Resection of peritoneal implant on small bowel mesentery (64942). 4. Placement of Interceed mesh to limit recurrent adhesion formation between the pelvic and abdominal wall and underlying viscera (39593). ANESTHESIA: General. HAIRMASTERS MANAGER: Patsy Fernandez PA-C INDICATIONS FOR PROCEDURE: This is a 39-year-old status post Hayden-en-Y gastric bypass performed in her home hospital in [place], [place], with small bowel obstruction. She was transferred here for definitive surgical treatment. The plan is to proceed with exploratory laparotomy with lysis of adhesions and bowel resection as indicated. Potential risks including bleeding, infection, leaks from various GI tract closures, recurrence of the problem over time were all noted, and the patient wishes to proceed. DETAILS OF PROCEDURE: The patient was taken to the operative room. After general endotracheal anesthesia was induced, a Thurman catheter was inserted, and the abdomen prepped and draped. A midline incision from the umbilicus up toward the xiphoid roughly over a handsbreadth of length was made and carried down through the skin and subcutaneous tissue and fascia. Upon entering the peritoneal cavity, the patient was noted to have a loop of small bowel that was quite distended. As it was traced down, this was noted to be associated with an adhesion directing down from the abdominal wall. This implanted down the peritoneum anteriorly, and this peritoneal implant after being divided was then excised. This measured 14 cm in length, i.e. was quite extensive in terms of its overall length and propensity to cause bowel obstructions. Upon release of that area of adhesion, the small bowel appeared to be viable and not overly distended proximally. There was a separate peritoneal implant measuring 6 cm upon the small bowel mesentery which also looked like it would be prone to cause subsequent bowel obstruction. This was similarly excised, and at that point, no further major problems were noted. The abdomen was irrigated with antibiotic-containing saline solution. The Interceed mesh was then placed underneath the incision, from there down toward the pelvis to limit recurrent adhesion formation between the pelvic and abdominal wall and underlying viscera. The midline fascia was then approximated with a #2 Vicryl stitch. Of note, the patient did have some intraperitoneal mesh which was opened and closed prior to the fascial closure with a 0 Prolene stitch with care taken to avoid any contamination of that mesh. Once the fascia was closed and the subcutaneous tissue was closed with 2 layers of 3-0 and 4-0 Vicryl stitch deep and then amarjit for the skin, bilateral transversus abdominis plane blocks had been placed, and the incision was anesthetized with 1% lidocaine mixed with Marcaine as well. The patient was taken to the recovery room in satisfactory condition. Physician materials assistant, Patsy Fernandez, played an essential role in assisting in this case, helping to position the patient, retract structures as needed as well as suturing and cutting sutures when indicated. Her presence improved patient safety. Graham Myers MD /[id number]
== END 2020-06-28 12:00 | disposition home or self-care (01) | DRG 336 ==
LOC: JP.ICU 12:32 → JP.MS 17:26
PROVIDERS: ADMIT Surgery; ATTEND Surgery
PROC: 3E0M05Z Introduction of Adhesion Barrier into Peritoneal Cavity, Open Approach (ICD-10-PCS; principal; 2020-06-25)
PROC: 0DN80ZZ Release Small Intestine, Open Approach (ICD-10-PCS; principal; 2020-06-25)
PROC: 0DBW0ZZ Excision of Peritoneum, Open Approach (ICD-10-PCS; principal; 2020-06-25)
DX: K56.51 Intestinal adhesions [bands], with partial obstruction (principal); K90.9 Intestinal malabsorption, unspecified; Z98.84 Bariatric surgery status; E53.8 Deficiency of other specified B group vitamins; G43.909 Migraine, unspecified, not intractable, without status migrainosus; F41.9 Anxiety disorder, unspecified; F32.9 Major depressive disorder, single episode, unspecified; E03.9 Hypothyroidism, unspecified; E55.9 Vitamin D deficiency, unspecified; D64.9 Anemia, unspecified; Z91.030 Bee allergy status; Z79.890 Hormone replacement therapy; Z79.899 Other long term (current) drug therapy; H54.7 Unspecified visual loss; E78.00 Pure hypercholesterolemia, unspecified; Z87.01 Personal history of pneumonia (recurrent); K21.9 Gastro-esophageal reflux disease without esophagitis; Z87.11 Personal history of peptic ulcer disease; Z90.710 Acquired absence of both cervix and uterus
CPT/HCPCS: 36415; 74240; 74240-26; 80053; 82728; 83735; 84100; 85025; 85027; 88302; 88305; 93005; 93010; 94762; A9270-GY; C9113; J0171; J0330; J0694; J1100; J1170; J1200; J1644; J2020; J2185; J2405; J2704; J2710; J2795; J3010; J3410; J3411; J3420; J3475; J3490; J7050; J7121; Q9967

== ENCOUNTER 2021-09-15 22:33 | Inpatient (IN) | payer MEDICAID ==
[2021-09-15] MEDS ORDERED: diphenhydrAMINE 25 MG Cap PO PRN (23:21)
[2021-09-15] MEDS ORDERED: Naloxone 0.4 MG/ML SDV IVPUSH PRN (23:21)
[2021-09-15] MEDS ORDERED: diphenhydrAMINE 50 MG/ML SDV IVPUSH PRN (23:21)
[2021-09-16] MEDS: HYDROmorphone/Normal Saline 6 MG/30 ML PCA Vial IV PRN (00:23)
[2021-09-16] MEDS ORDERED: Dextrose 5%-Lactated Ringers 1,000 ML IV SCH (00:30)
[2021-09-16] MEDS ORDERED: Calcium Carbonate 500 MG Tab.Chew PO PRN (06:50)
[2021-09-16] MEDS ORDERED: Meropenem 500 MG SDV ONE (07:29)
[2021-09-16] MEDS: Ondansetron 4 MG/2 ML SDV IVPUSH PRN ×2 (09:16→13:09)
[2021-09-16] MEDS ORDERED: Lidocaine 1% with EPINEPHrine 1:100,000 50 ML MDV ONE (09:50)
[2021-09-16] MEDS ORDERED: Bupivacaine 0.5% 50 ML MDV ONE (09:50)
[2021-09-16] MEDS ORDERED: Glycopyrrolate 0.2 MG/ML 5 ML MDV ONE (10:03)
[2021-09-16] MEDS ORDERED: Succinylcholine 200 MG/10 ML MDV ONE (10:03)
[2021-09-16] MEDS ORDERED: fentaNYL 250 MCG/5 ML SDV ONE (10:03)
[2021-09-16] MEDS ORDERED: Ondansetron 4 MG/2 ML SDV ONE (10:03)
[2021-09-16] MEDS ORDERED: Dexamethasone 4 MG/ML SDV ONE (10:03)
[2021-09-16] MEDS ORDERED: Propofol 200 MG/20 ML SDV ONE (10:03)
[2021-09-16] MEDS ORDERED: Rocuronium 50 MG/5 ML Vial ONE (10:03)
[2021-09-16] MEDS ORDERED: Neostigmine Methylsulfate 1 MG/ML 5 ML Syringe ONE (10:03)
[2021-09-16] MEDS ORDERED: Ketamine 17 MG in Sodium Chloride 0.9% 19.83 ML IV SCH (10:30)
[2021-09-16] MEDS ORDERED: Ketamine 500 MG/5 ML MDV IV SCH (10:30)
[2021-09-16] MEDS ORDERED: cefOXitin 2 GM in Sodium Chloride 0.9% 50 ML IV ONE (10:30)
[2021-09-16] MEDS ORDERED: Lactated Ringers 1,000 ML ONE (11:19)
[2021-09-16] MEDS ORDERED: fentaNYL 100 MCG/2 ML SDV ONE (12:10)
[2021-09-16] MEDS: hydrOXYzine HCL 100 MG/2 ML SDV ONE ×2 (13:09→13:13)
[2021-09-16] MEDS ORDERED: hydrOXYzine HCL 100 MG/2 ML SDV IM PRN (13:13)
[2021-09-16] MEDS ORDERED: Cyclobenzaprine 10 MG Tab PO PRN (13:29)
[2021-09-16] MEDS ORDERED: Acetaminophen 500 MG Tab PO PRN (13:45)
[2021-09-16] MEDS ORDERED: diphenhydrAMINE 50 MG/ML SDV IVPUSH PRN (13:45)
[2021-09-16] MEDS ORDERED: Metoclopramide 10 MG/2 ML SDV IVPUSH PRN (13:45)
[2021-09-16] MEDS ORDERED: Labetalol 20 MG/4 ML Syringe IVPUSH PRN (13:45)
[2021-09-16] MEDS ORDERED: Acetaminophen 500 MG Tab PO SCH (14:00)
[2021-09-16] MEDS: Dextrose 5%-Lactated Ringers 1,000 ML IV SCH (14:24)
[2021-09-16] MEDS: Sodium Ferric Gluconate Cmplex 250 MG in Sodium Chloride 0.9% 100 ML IV SCH (15:22)
[2021-09-16] MEDS ORDERED: Pantoprazole 40 MG Vial IVPUSH SCH (15:30)
[2021-09-16] MEDS: Acetaminophen 500 MG Tab PO SCH (18:14)
[2021-09-16] MEDS: MVI, Adult with Vitamin K 10 ML, Thiamine 200 MG, Zinc/Copper/Manganese/Selenium 1 ML i... IV SCH ×4 (20:06)
[2021-09-16] MEDS: cefOXitin 2 GM in Sodium Chloride 0.9% 50 ML IV SCH ×2 (20:11→22:57)
[2021-09-16] MEDS: Heparin Sodium 5,000 Units/ML Vial SUBCUT SCH (20:14)
[2021-09-17] MEDS: Dextrose 5%-Lactated Ringers 1,000 ML IV SCH (01:56)
[2021-09-17] MEDS: Acetaminophen 500 MG Tab PO SCH ×3 (02:44→18:32)
[2021-09-17] MEDS ORDERED: Iopamidol 612 MG/ML 50 ML SDV PO STA (02:46)
[2021-09-17] MEDS: HYDROmorphone/Normal Saline 6 MG/30 ML PCA Vial IV PRN (04:02)
[2021-09-17] MEDS: cefOXitin 2 GM in Sodium Chloride 0.9% 50 ML IV SCH ×4 (04:04→22:00)
[2021-09-17] MEDS ORDERED: Dextrose 5%-Lactated Ringers 1,000 ML IV SCH ×2 (07:30)
[2021-09-17] MEDS: Levothyroxine 100 MCG Tab PO SCH (08:02)
[2021-09-17] MEDS: Heparin Sodium 5,000 Units/ML Vial SUBCUT SCH ×2 (08:02→19:38)
[2021-09-17] MEDS: Sertraline 50 MG Tab PO SCH (08:02)
[2021-09-17] MEDS: Celecoxib 200 MG Cap PO SCH ×2 (08:02→21:31)
[2021-09-17] MEDS: SCOPOLAMINE PATCH CHECK TOP SCH (09:22)
[2021-09-17] MEDS: Pantoprazole 40 MG Tab.CR PO SCH (11:05)
[2021-09-17] MEDS: Sodium Ferric Gluconate Cmplex 250 MG in Sodium Chloride 0.9% 100 ML IV SCH (14:44)
[2021-09-17] MEDS: MVI, Adult with Vitamin K 10 ML, Thiamine 200 MG, Zinc/Copper/Manganese/Selenium 1 ML i... IV SCH ×4 (18:30)
[2021-09-18] MEDS: Acetaminophen 500 MG Tab PO SCH ×3 (01:29→17:02)
[2021-09-18] MEDS: Levothyroxine 100 MCG Tab PO SCH (07:07)
[2021-09-18] MEDS: Pantoprazole 40 MG Tab.CR PO SCH (07:07)
[2021-09-18] MEDS: Heparin Sodium 5,000 Units/ML Vial SUBCUT SCH ×2 (07:07→20:42)
[2021-09-18] MEDS ORDERED: Cyanocobalamin (Vitamin B12) 1,000 MCG/ML SDV IM ONE (09:00)
[2021-09-18] MEDS: Docusate Sodium 100 MG Cap PO SCH ×2 (09:03→20:43)
[2021-09-18] MEDS: Bisacodyl 5 MG Tab PO SCH ×2 (09:03→20:43)
[2021-09-18] MEDS: Celecoxib 200 MG Cap PO SCH ×2 (09:03→20:44)
[2021-09-18] MEDS: SCOPOLAMINE PATCH CHECK TOP SCH (09:06)
[2021-09-18] MEDS: Sertraline 50 MG Tab PO SCH (09:07)
[2021-09-18] MEDS: HYDROmorphone 2 MG Tab PO PRN ×3 (11:11→23:31)
[2021-09-19] MEDS: Acetaminophen 500 MG Tab PO SCH ×2 (01:51→10:25)
[2021-09-19] MEDS: Pantoprazole 40 MG Tab.CR PO SCH (07:31)
[2021-09-19] MEDS: Levothyroxine 100 MCG Tab PO SCH (07:31)
[2021-09-19] MEDS: Heparin Sodium 5,000 Units/ML Vial SUBCUT SCH (07:32)
[2021-09-19] MEDS ORDERED: Magnesium Hydroxide 400 MG/5 ML Susp 30 ML Cup PO PRN (07:39)
[2021-09-19] MEDS ORDERED: Magnesium Hydroxide 400 MG/5 ML Susp 30 ML Cup PO ONE (07:45)
[2021-09-19] MEDS: Docusate Sodium 100 MG Cap PO SCH (08:23)
[2021-09-19] MEDS: Bisacodyl 5 MG Tab PO SCH (08:23)
[2021-09-19] MEDS: Celecoxib 200 MG Cap PO SCH (08:23)
[2021-09-19] MEDS: Sertraline 50 MG Tab PO SCH (08:23)
== END 2021-09-19 10:45 | disposition home or self-care (01) | DRG 330 ==
LOC: JP.ICU 22:33
PROVIDERS: ADMIT Surgery; ATTEND Surgery
PROC: 0DS80ZZ Reposition Small Intestine, Open Approach (ICD-10-PCS; principal; 2021-09-16)
PROC: 0D1A0ZA Bypass Jejunum to Jejunum, Open Approach (ICD-10-PCS; principal; 2021-09-16)
PROC: 0DN80ZZ Release Small Intestine, Open Approach (ICD-10-PCS; principal; 2021-09-16)
PROC: 0DT80ZZ Resection of Small Intestine, Open Approach (ICD-10-PCS; principal; 2021-09-16)
PROC: 0WUF0JZ Supplement Abdominal Wall with Synthetic Substitute, Open Approach (ICD-10-PCS; principal; 2021-09-16)
PROC: 0DBW0ZZ Excision of Peritoneum, Open Approach (ICD-10-PCS; principal; 2021-09-16)
DX: K56.2 Volvulus (principal); K43.0 Incisional hernia with obstruction, without gangrene; F32.A Depression, unspecified; D50.9 Iron deficiency anemia, unspecified; E78.2 Mixed hyperlipidemia; G43.909 Migraine, unspecified, not intractable, without status migrainosus; Z20.822 Contact with and (suspected) exposure to COVID-19; K21.9 Gastro-esophageal reflux disease without esophagitis; Z90.89 Acquired absence of other organs; Z98.84 Bariatric surgery status; Z98.890 Other specified postprocedural states
CPT/HCPCS: 36415; 74240; 74240-26; 82306; 82525; 82607; 82728; 82746; 84484; 84590; 84630; 88302; 88305; 88307; A9270-GY; C9113; J0171; J0330; J0694; J1100; J1170; J1200; J1644; J2020; J2185; J2405; J2704; J2710; J2795; J2916; J3010; J3410; J3411; J3420; J3490; J7120; J7121; Q9967; U0002